=== PATIENT | female | born 1970 | race Caucasian/White ===

== ENCOUNTER 2023-03-05 14:33 | Inpatient (IN) ==
--- NOTE | 2023-03-05 14:40 | ED Triage Note ---
Date of Service March 05, 2023 History of Present Illness This patient was briefly evaluated while in triage. An abbreviated physical exam was performed. This patient is a 52-year-old Female who presents to the ED for evaluation fever and chills x 1 hour was shivering and could not get warm took temperature fever was 100.5 about 1 hour ago, then 102, took no medications ANDRES, cough x 2 days no N/V/D, urinary symptoms treatment for breast cancer - most recent chem was 3 weeks ago PICC left upper chest-had a dressing change had labs done today at [facility] Physical Exam GENERAL: NAD CARDIOVASCULAR: RRR RESPIRATORY: CTA ABDOMEN: BS x 4. Nontender to palpation. SKIN: healthy PICC line left upper chest Initial orders for labs and / or imaging were placed and patient was placed in the waiting area until a bed is available. Please see further documentation for the full ED course.
--- NOTE | 2023-03-05 15:29 | XRay Report ---
XR chest 1V not portable CLINICAL HISTORY: Sepsis. COMPARISON STUDY: PET/CT September 25, 2022 and chest radiograph February 07, 2022. FINDINGS: Left-sided Lnspkv-[id number]-Yoig is in place. Lung volumes are normal. Lungs are clear. There is no pneumothorax or pleural effusion. Cardiac size is normal. Mediastinal contours are normal. There is no evidence for pulmonary edema. IMPRESSION: No acute cardiopulmonary findings. ACT 112: Negative or not required by law. Electronically signed by: Jonathon Cristina M.D. 03/05/2023 3:28 PM
[2023-03-05 17:46] LABS: Basophils # (auto) 0.01 K/uL (0-0.2); Basophils % (auto) 0.6 %; Eosinophils # (auto) 0.01 K/uL (0-0.50); Eosinophils % (auto) 0.6 %; Hematocrit (blood only) 35.2 % (37.0-47.0); Hemoglobin 12.1 g/dl (12.0-16.0); Immature Granulocytes # (auto) 0.01 K/uL (0.01-0.20); Immature Granulocytes % (auto) 0.6 %; Lymphocytes # (auto) 0.22 K/uL (1.2-3.4); Lymphocytes % (auto) 12.9 %; Mean Corpuscular Hemoglobin 29.7 pg (25.0-34.0); Mean Corpuscular Hgb Conc 34.4 g/dL (32.0-36.0); Mean Corpuscular Volume 86.5 fL (80.0-100.0); Monocytes # (auto) 0.36 K/uL (0.11-0.59); Monocytes % (auto) 21.2 %; Neutrophils # (auto) 1.09 K/uL (1.40-6.50); Neutrophils % (auto) 64.1 %; Platelet Count 166 K/uL (130-400); RDW Coefficient of Variation 13.3 % (11.5-14.5); RDW Standard Deviation 41.1 fL (36.4-46.3); Red Blood Count 4.07 M/uL (4.20-5.40)
[2023-03-05] MEDS ORDERED: ACETAMINOPHEN 1,000 MG/100 ML VIAL IV STA (17:53)
[2023-03-05 18:04] LABS: Albumin Level 4.2 gm/dl (3.4-5.0); BUN Creatinine Ratio 20.7 (10-20); Bilirubin Direct 0.1 mg/dl (0-0.2); Bilirubin,Total 0.5 mg/dl (0.2-1.0); Calcium 9.6 mg/dl (8.6-10.3); Creatinine Clr Calc Pharmacy 69.8 ml/min; Est GFR (African American) 94.7 ml/min; Est GFR (Non-African American) 81.7 ml/min; Magnesium 1.8 mg/dl (1.7-2.4); Potassium 3.7 mmol/L (3.5-5.1); Total Protein 6.8 gm/dl (6.0-8.3)
--- NOTE | 2023-03-05 18:09 | Emergency Department Note ---
Impression & Plan Neutropenic fever, Elevated procalcitonin ED Provider Note HISTORY OF PRESENT ILLNESS: Patient is a 52-year-old female presenting with fever and general malaise. Patient is currently receiving chemotherapy for breast cancer. She reports her last dose of chemo was almost 3 weeks ago. She states that today she was feeling chilled while at work and having some rigors. She went out to her car where it was warm and she was feeling better, but when she went back into the building she was again feeling very unwell. She took her temperature at home and noted to be febrile from 100.5-102. She called her oncologist who referred her to the emergency department. States that she had a nonproductive minor cough over the weekend. Denies any recent sick contact exposures. Denies any chest pain. Denies any nausea, vomiting or diarrhea. Denies any dysuria or hematuria ROS: as above PHYSICAL EXAM: Constitutional: Patient appears in no acute distress. HENT: Head: Normocephalic and atraumatic. Eyes: EOMI, PERRL Mouth/Throat: Mucous membranes moist. Neck: Trachea midline. Neck supple. Cardiovascular: RRR, No murmurs, rubs or gallops. Intact distal pulses. Pulmonary/Chest: No respiratory distress. Breath sounds clear and equal bilaterally. No wheezes or rales. Abdominal: Abdomen soft, no tenderness, rebound or guarding. Musculoskeletal: No edema, tenderness or deformity noted. Skin: Warm and dry. No rash, erythema, pallor or cyanosis Psychiatric: Appropriate mood and affect for situation. Neurological: Alert and keenly responsive. CN II-XII grossly intact, moving all extremities equally and fully. MDM: - Vitals signs showed tachycardia. - History obtained via patient. Patient presents with fever and general malaise. Patient reports that today she was feeling chilled at work and noted that she had a fever when she got home. She is currently receiving chemotherapy for a history of breast cancer. He is last dose of chemo was almost 3 weeks ago. Denies any chest pain, nausea or vomiting. Denies any abdominal pain. - Chronic conditions affecting care: breast cancer - Differential diagnoses include, but are not limited to: UTI; pneumonia; bacteremia; viral syndrome - Order placed for continuous cardiac monitoring. At this time, monitor showed rate of 95 bpm with normal sinus rhythm, per my interpretation. - External medical records reviewed. - EKG reviewed by myself showed normal sinus rhythm. Rate 98 bpm. QTc 681. No acute ischemic changes. - Laboratory workup interpreted by myself showed leukopenia (WBC 1.7); neutropenia (neutrophils 1.09); normal lactate; normal electrolytes; elevated liver function tests (AST 54; ALT 61); normal troponin; elevated procalcitonin (4.9) - CXR negative for pneumonia, per my interpretation. - UA negative for infection - [employer] upper respiratory panel negative - Blood cultures obtained. - US RUQ ordered to assess for possible cholecystitis as source. - Patient did develop a fever in ER. Given 1g IV acetaminophen. - Patient given IV cefepime for antibiotic coverage. - Discussion was had with director social about patient's case and need for admission. - Hospitalist, Dr. Morin, consulted for admission - Patient admitted to [facility] service for further evaluation and management. ASSESSMENT AND PLAN: Diagnosis: neutropenic fever; elevated procalcitonin Plan: admit Past Med/Surg History Medical History (Updated 03/05/23 @ 19:50 by Sara Kohli MD) Kidney stone Melanoma in situ Surgical History (Updated 12/05/21 @ 08:26 by Sierra Dsouza RN) History of removal of skin mole S/P lumpectomy, right breast Family History (Updated 08/13/19 @ 09:13 by MOISÉS Sharp) Aunt Breast cancer maternal Grandmother (Maternal) Heart disease Myocardial infarction Uncle Heart disease Sister Melanoma Denies family history of Ovarian cancer Prostate cancer Colorectal cancer Social History (Updated 12/05/21 @ 08:29 by Sierra Dsouza RN) Smoking Status: Never smoker Hx Alcohol Use: No Hx Substance Use: No Preferred Language: Italian Communication Ability: Effective Visual Impairment: No Limitations Hearing Ability: Normal 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 Lunch Manager Required: No Beliefs That Will Affect Care: None marital status: Current Living Situation: Spouse and Family current occupational status: employed Feels Safe at Home: Yes Diet Comment: Plant based whole food since October, previous vegetarian caffeine: No during the past year weight has: remained stable Physical Activity Frequency: 3-4 Times per Week Assistive Devices: None Allergies Allergies Allergy/AdvReac Type Severity Reaction Status Date / Time adhesive AdvReac Mild Rash Verified 03/05/23 16:55 Home Meds Home Medications Medication Instructions Recorded Confirmed krill 1,000 mg-omega-3 170 mg-dha 1 cap PO QAM 06/28/19 03/05/23 50 mg-epa 80 mm-gpumzj-fzttb capsule (krill oil) Coriolus Versicolor SAP mushrooms 500 mg PO DAILY 11/20/22 03/05/23 MagPure Glycinate 270 mg PO DAILY 11/20/22 03/05/23 Reacted Calcium with Phosphorous 250 mg PO DAILY 11/20/22 03/05/23 TetrahydroCurcumin SR 2 cap PO QAM 11/20/22 03/05/23 Ultraflora Spectrum Probiotic 1 cap PO QAM 11/20/22 03/05/23 acetaminophen 500 mg tablet 1,000 mg PO Q8H PRN Pain 11/20/22 03/05/23 (Tylenol Extra Strength) cholecalciferol (vitamin D3) 50 4,000 unit PO QAM 11/20/22 03/05/23 mcg (2,000 unit) tablet (Vitamin D3) ibuprofen 400 mg tablet 400 mg PO Q8H 11/20/22 03/05/23 pectin agh-mpdl-A-bioflav-soy 3 tab PO DAILY 11/20/22 03/05/23 tablet sertraline 50 mg tablet 50 mg PO QAM 11/20/22 03/05/23 vitamin C Lipsomal 1,600 mg PO DAILY 11/20/22 03/05/23 vitamin K2 100 mcg capsule 100 mcg PO DAILY 11/20/22 03/05/23 Results & Data (ED) Vital Signs Vital Signs - 24 hr 03/05/23 14:33 03/05/23 17:28 03/05/23 17:29 Temperature 37.4 C Temperature Source Oral Pulse Rate 109 H Pulse Rate [Apical] 97 H Pulse Rhythm [Apical] Pulse Strength [Apical] Respiratory Rate 18 18 Respiratory Effort / Characteristics Non-Labored Respiratory Depth Normal Respiratory Pattern Regular Blood Pressure 116/65 Blood Pressure [Left Arm] 139/79 Blood Pressure Mean 82 Blood Pressure Mean [Left Arm] 99 Pulse Oximetry 98 99 98 Oxygen Delivery Method Room Air Room Air Sepsis Recent Fever Within 48 Hours Yes Sepsis New/Unexplained Change in Mental Status N/A Sepsis Action Taken by Nursing No Action Required 03/05/23 17:31 03/05/23 17:41 03/05/23 18:04 Temperature 37.9 C H Temperature Source Oral Pulse Rate 91 H Pulse Rate [Apical] 95 H Pulse Rhythm [Apical] Regular Pulse Strength [Apical] Normal Respiratory Rate 18 Respiratory Effort / Characteristics Non-Labored Respiratory Depth Normal Respiratory Pattern Regular Blood Pressure Blood Pressure [Left Arm] 133/76 Blood Pressure Mean Blood Pressure Mean [Left Arm] 95 Pulse Oximetry 98 Oxygen Delivery Method Room Air Sepsis Recent Fever Within 48 Hours Sepsis New/Unexplained Change in Mental Status Sepsis Action Taken by Nursing 03/05/23 19:22 Temperature 37.0 C Temperature Source Oral Pulse Rate Pulse Rate [Apical] Pulse Rhythm [Apical] Pulse Strength [Apical] Respiratory Rate Respiratory Effort / Characteristics Respiratory Depth Respiratory Pattern Blood Pressure Blood Pressure [Left Arm] Blood Pressure Mean Blood Pressure Mean [Left Arm] Pulse Oximetry Oxygen Delivery Method Sepsis Recent Fever Within 48 Hours Sepsis New/Unexplained Change in Mental Status Sepsis Action Taken by Nursing Laboratory Data 03/05/23 17:20 03/05/23 17:20 Lab Results 03/05/23 03/05/23 03/05/23 Range/Units 17:20 17:20 17:20 WBC 1.70 L (4.8-10.8) K/ul RBC 4.07 L (4.20-5.40) M/uL Hgb 12.1 (12.0-16.0) g/dl Hct 35.2 L (37.0-47.0) % MCV 86.5 (80.0-100.0) fL MCH 29.7 (25.0-34.0) pg MCHC 34.4 (32.0-36.0) g/dL RDW Std Deviation 41.1 (36.4-46.3) fL RDW Coeff of Julian 13.3 (11.5-14.5) % Plt Count 166 (130-400) K/uL MPV 9.0 L (9.4-12.4) fL Immature Gran % (Auto) 0.6 % Neut % (Auto) 64.1 % Lymph % (Auto) 12.9 % [place] % (Auto) 21.2 % Eos % (Auto) 0.6 % Baso % (Auto) 0.6 % Neut # (Auto) 1.09 L (1.40-6.50) K/uL Lymph # (Auto) 0.22 L (1.2-3.4) K/uL [place] # (Auto) 0.36 (0.11-0.59) K/uL Eos # (Auto) 0.01 (0-0.50) K/uL Baso # (Auto) 0.01 (0-0.2) K/uL Immature Gran # (Auto) 0.01 (0.01-0.20) K/uL Sodium 138 (136-145) mmol/L Potassium 3.7 (3.5-5.1) mmol/L Chloride 107 (98-107) mmol/L Carbon Dioxide 24 (21-32) mmol/L Anion Gap 7 (3-11) BUN 17 (6-23) mg/dl Creatinine 0.82 (0.6-1.2) mg/dl Est Cr Clr Drug Dosing 69.8 ml/min Est GFR ( Amer) 94.7 ml/min Est GFR (Non-Af Amer) 81.7 ml/min BUN/Creatinine Ratio 20.7 H (10-20) Glucose 131 H (70-99(Fasting)) mg/dl Lactate (0.4-2.0) mmol/L Calcium 9.6 (8.6-10.3) mg/dl Magnesium 1.8 (1.7-2.4) mg/dl Total Bilirubin 0.5 (0.2-1.0) mg/dl Direct Bilirubin 0.1 (0-0.2) mg/dl AST 54 H (13-39) U/L ALT 61 H (7-52) U/L Alkaline Phosphatase 114 H (34-104) U/L Troponin I High Sens 2.8 (0-14) pg/ml Total Protein 6.8 (6.0-8.3) gm/dl Albumin 4.2 (3.4-5.0) gm/dl Procalcitonin 4.90 H (0-0.5) ng/ml Urine Color Urine Appearance (Clear) Urine pH (4.5-7.5) Ur Specific [place] (1.000-1.030) Urine Protein (Negative) Urine Glucose (UA) (Negative) Urine Ketones (Negative) Urine Blood (Negative) Urine Nitrite (Negative) Urine Bilirubin (Negative) Urine Urobilinogen (Negative) Ur Leukocyte Esterase (Negative) Adenovirus (PCR) (NotDetected) B. pertussis DNA (PCR) (NotDetected) B.parapertussis DNA PCR (NotDetected) C. pneumoniae DNA (PCR) (NotDetected) Coronavirus OC43 (PCR) (NotDetected) Coronavirus HKU1 (PCR) (NotDetected) Coronavirus 229E (PCR) (NotDetected) SARS-CoV-2 (PCR) (NotDetected) Coronavirus NL63 (PCR) (NotDetected) Human Metapneumovir PCR (NotDetected) Influenza Type A (PCR) (NotDetected) Influenza Type B (PCR) (NotDetected) M. pneumoniae (PCR) (NotDetected) Parainfluenza 1 (PCR) (NotDetected) Parainfluenza 2 (PCR) (NotDetected) Parainfluenza 3 (PCR) (NotDetected) Parainfluenza 4 (PCR) (NotDetected) RSV (PCR) (NotDetected) Entero/Rhino (PCR) (NotDetected) 03/05/23 03/05/23 03/05/23 Range/Units 17:26 18:07 18:36 WBC (4.8-10.8) K/ul RBC (4.20-5.40) M/uL Hgb (12.0-16.0) g/dl Hct (37.0-47.0) % MCV (80.0-100.0) fL MCH (25.0-34.0) pg MCHC (32.0-36.0) g/dL RDW Std Deviation (36.4-46.3) fL RDW Coeff of Julian (11.5-14.5) % Plt Count (130-400) K/uL MPV (9.4-12.4) fL Immature Gran % (Auto) % Neut % (Auto) % Lymph % (Auto) % [place] % (Auto) % Eos % (Auto) % Baso % (Auto) % Neut # (Auto) (1.40-6.50) K/uL Lymph # (Auto) (1.2-3.4) K/uL [place] # (Auto) (0.11-0.59) K/uL Eos # (Auto) (0-0.50) K/uL Baso # (Auto) (0-0.2) K/uL Immature Gran # (Auto) (0.01-0.20) K/uL Sodium (136-145) mmol/L Potassium (3.5-5.1) mmol/L Chloride (98-107) mmol/L Carbon Dioxide (21-32) mmol/L Anion Gap (3-11) BUN (6-23) mg/dl Creatinine (0.6-1.2) mg/dl Est Cr Clr Drug Dosing ml/min Est GFR ( Amer) ml/min Est GFR (Non-Af Amer) ml/min BUN/Creatinine Ratio (10-20) Glucose (70-99(Fasting)) mg/dl Lactate 1.9 (0.4-2.0) mmol/L Calcium (8.6-10.3) mg/dl Magnesium (1.7-2.4) mg/dl Total Bilirubin (0.2-1.0) mg/dl Direct Bilirubin (0-0.2) mg/dl AST (13-39) U/L ALT (7-52) U/L Alkaline Phosphatase (34-104) U/L Troponin I High Sens (0-14) pg/ml Total Protein (6.0-8.3) gm/dl Albumin (3.4-5.0) gm/dl Procalcitonin (0-0.5) ng/ml Urine Color Yellow Urine Appearance Clear (Clear) Urine pH 7.0 (4.5-7.5) Ur Specific [place] 1.004 (1.000-1.030) Urine Protein Negative (Negative) Urine Glucose (UA) Negative (Negative) Urine Ketones Negative (Negative) Urine Blood Negative (Negative) Urine Nitrite Negative (Negative) Urine Bilirubin Negative (Negative) Urine Urobilinogen Negative (Negative) Ur Leukocyte Esterase Negative (Negative) Adenovirus (PCR) Not Detected (NotDetected) B. pertussis DNA (PCR) Not Detected (NotDetected) B.parapertussis DNA PCR Not Detected (NotDetected) C. pneumoniae DNA (PCR) Not Detected (NotDetected) Coronavirus OC43 (PCR) Not Detected (NotDetected) Coronavirus HKU1 (PCR) Not Detected (NotDetected) Coronavirus 229E (PCR) Not Detected (NotDetected) SARS-CoV-2 (PCR) Not Detected (NotDetected) Coronavirus NL63 (PCR) Not Detected (NotDetected) Human Metapneumovir PCR Not Detected (NotDetected) Influenza Type A (PCR) Not Detected (NotDetected) Influenza Type B (PCR) Not Detected (NotDetected) M. pneumoniae (PCR) Not Detected (NotDetected) Parainfluenza 1 (PCR) Not Detected (NotDetected) Parainfluenza 2 (PCR) Not Detected (NotDetected) Parainfluenza 3 (PCR) Not Detected (NotDetected) Parainfluenza 4 (PCR) Not Detected (NotDetected) RSV (PCR) Not Detected (NotDetected) Entero/Rhino (PCR) Not Detected (NotDetected) Administered Medications Discontinued Medications Acetaminophen (Ofirmev) 1,000 mg in 100 mls @ 400 mls/hr IV NOW STA Stop: 03/05/23 18:07 Last Infusion: 03/05/23 19:22 Dose: 0 mls/hr Documented By: Admin: 03/05/23 18:05 Dose: 400 mls/hr Documented By: FARRAH Cefepime HCl (Maxipime) 2,000 mg in 20 mls @ 5 mls/min IV NOW STA; Protocol Stop: 03/05/23 18:38 Last Admin: 03/05/23 18:44 Dose: 5 mls/min Documented By: FARRAH Imaging Data Radiologist's Impression: Chest X-Ray 03/05/23 14:43 XR chest 1V not portable CLINICAL HISTORY: Sepsis. COMPARISON STUDY: PET/CT September 25, 2022 and chest radiograph February 07, 2022. FINDINGS: Left-sided Ucnxpd-v-Vmjb is in place. Lung volumes are normal. Lungs are clear. There is no pneumothorax or pleural effusion. Cardiac size is normal. Mediastinal contours are normal. There is no evidence for pulmonary edema. IMPRESSION: No acute cardiopulmonary findings. ACT 112: Negative or not required by law. Electronically signed by: Jonathon Cristina M.D. 03/05/2023 3:28 PM Discharge Plan Visit Data Chief Complaint: Fever Stated Complaint: CANCER PT, FEVER,HEADACHE,DIZZINESS ED Provider: Sara Kohli Discharge Problem: Neutropenic fever, Elevated procalcitonin Forms Stand Alone Forms: My [facility] Prescriptions Prescriptions: No Action vitamin K2 100 mcg capsule 100 mcg PO DAILY vitamin C Lipsomal 1,600 mg PO DAILY Coriolus Versicolor SAP mushrooms 500 mg PO DAILY sertraline 50 mg tablet 50 mg PO QAM pectin jns-wcoa-U-bioflav-soy Tablet 3 tab PO DAILY TetrahydroCurcumin SR 2 cap PO QAM Ultraflora Spectrum Probiotic 1 cap PO QAM Reacted Calcium with Phosphorous 250 mg PO DAILY MagPure Glycinate 270 mg PO DAILY acetaminophen [Tylenol Extra Strength] 500 mg tablet 1,000 mg PO Q8H PRN (Reason: Pain) ibuprofen 400 mg tablet 400 mg PO Q8H krill oil [id number] mg Capsule 1 cap PO QAM cholecalciferol (vitamin D3) [Vitamin D3] 50 mcg (2,000 unit) tablet 4,000 unit PO QAM Referrals Referrals: Clary Mari PA-C [Primary Care Provider] -
[2023-03-05 18:10] LABS: Troponin I High Sensitivity 2.8 pg/ml (0-14)
[2023-03-05 18:24] LABS: Appearance Urine Clear (Clear); Bilirubin Urine Negative (Negative); Blood Urine Negative (Negative); Color Urine Yellow; Glucose Urine UA Negative (Negative); Ketones Urine Negative (Negative); Leukocyte Esterase Urine Negative (Negative); Nitrite Urine Negative (Negative); Protein Urine Negative (Negative); Specific Gravity Urine 1.004 (1.000-1.030); Urobilinogen Urine Negative (Negative)
[2023-03-05 18:31] LABS: Adenovirus PCR Not Detected (NotDetected); Bordetella parapertussis PCR Not Detected (NotDetected); Bordetella pertussis PCR Not Detected (NotDetected); Chlamydia pneumoniae PCR Not Detected (NotDetected); Coronavirus 229E PCR Not Detected (NotDetected); Coronavirus CoV-2 (COVID19)PCR Not Detected (NotDetected); Coronavirus HKU1 PCR Not Detected (NotDetected); Coronavirus NL63 PCR Not Detected (NotDetected); Coronavirus OC43PCR Not Detected (NotDetected); Human Metapneumovirus PCR Not Detected (NotDetected); Influenza A PCR Not Detected (NotDetected); Influenza B PCR Not Detected (NotDetected); Mycoplasma pneumoniae PCR Not Detected (NotDetected); Parainfluenza Virus 1 PCR Not Detected (NotDetected); Parainfluenza Virus 2 PCR Not Detected (NotDetected); Parainfluenza Virus 3 PCR Not Detected (NotDetected); Parainfluenza Virus 4 PCR Not Detected (NotDetected); Respiratory Syncytial VirusPCR Not Detected (NotDetected); Rhinovirus/Enterovirus PCR Not Detected (NotDetected)
[2023-03-05] MEDS ORDERED: CEFEPIME 2,000 MG/20 ML VIAL IV STA (18:35)
[2023-03-05] MEDS ORDERED: NSS + 20MEQ KCL 20 MEQ/1,000 ML BAG IV ONE (20:15)
--- NOTE | 2023-03-05 20:18 | Ultrasound Report ---
Exam(s): US LIVER EXAM: US Abdomen Limited, Right Upper Quadrant CLINICAL HISTORY: Reason for exam: fever; transaminitis. TECHNIQUE: Real-time ultrasound of the right upper quadrant with image documentation. COMPARISON: PET scan on 09/25/2022 FINDINGS: Liver: Unremarkable. No mass. No intrahepatic bile duct dilation. Gallbladder: No gallstones or sludge. No gallbladder wall thickening or pericholecystic fluid. Negative sonographic Dorman's sign. Common bile duct: Unremarkable as visualized. No stones. No dilation. Normal common bile duct measuring 5.1 mm. Pancreas: Visualized portions of the pancreas are grossly unremarkable. Right kidney: Right kidney measures 9.5 cm in length. No hydronephrosis or stone. Inferior vena cava: Visualized portions of the IVC are grossly unremarkable. Free fluid: No ascites. IMPRESSION: No acute findings in the right upper quadrant. Electronically signed by: Nehal Nolasco M.D. 03/05/23 20:17 PM
--- NOTE | 2023-03-05 20:22 | History & Physical Report ---
Date of Service March 05, 2023 Assessment & Plan (1) Neutropenic fever: (2) Malignant neoplasm of upper-outer quadrant of right breast in female, estrogen receptor positive: Plan Ms. Whaley is a 52-year-old female with breast cancer s/p R mastectomy currently under [facility] chemo treatment that presented to the ED today with fever and chills that started at 1130 this morning. Recent infection at insertion site of port catheter; wound culture done on 01/18 and on 01/20 wound culture positive for pseudomonas aeruginosa; treated with THREE antibiotics; Cipro, Bactrim and she can not recall the third. Port tip culture sent and negative on 02/12. F alvinos with Dr. Mckayla Dillon at [facility]; completed 2/8 rounds of chemo; next round scheduled for Thursday 03/08. Radiation scheduled after completion of chemo which is planned for June. Neutropenic 1.70; no pancytopenia. Transaminitis AST 54, ALT 61, alk phos 114; procalcitonin 4.90. Liver US negative. Chest x-ray negative for acute cardiopulmonary disease. Current power port insertion directly next to recent insertion wound infection; trend labs including LFT's, await blood cultures and cover with Daptomycin for broad spectrum coverage including MRSA coverage. Would consider anti-pseudomonal coverage. Consider power port removal with tip culture if no improvement. Neutropenic fever: WBC 1.70 Transaminitis AST 54, ALT 61, alk phos 114 No abdominal pain; obtain liver ultrasound UA and BioFire negative Blood and sputum cultures ordered Recent infection at insertion site of port catheter; wound culture done on 01/18 and on 01/20 wound culture positive for pseudomonas aeruginosa; treated with THREE antibiotics; Cipro, Bactrim and she can not recall the third. Port was removed on 02/12 and tip culture sent and negative. Cefepime started in ED; will continue with Dapto and adjust based on culture results; Would consider antipseudomonal coverage Current power port insertion directly next to recent insertion wound infection; trend labs including LFT's. If no improvement, consider power port removal with tip culture if no improvement. Malignant neoplasm of right breast: Follows with Dr. Mckayla Dillon at [facility] where she receives her chemo; she has completed 2/8 rounds of chemo; next round scheduled for Thursday 03/08. Takes CMF chemotherapy. Follows with Dr. Rene with [facility] surgical oncology recurrent ER+, HI positive, H ER 2 negative recurrent right breast invasive ductal carcinoma status post right mastectomy with reconstruction 10/30/2022 with 2/2 positive nodes and ALND Radiation scheduled after completion of chemo which is planned for June 2023 Last PET scan 09/27 negative for metastasis. Disposition: PCP: Dr. Stiles CODE STATUS: Full code VTE prophylaxis: per admitting attending I spent a total of 88 minutes coordinating, documenting, and providing care for this patient excluding time spent in the performance of separately billed services. All of the aforementioned completed while collaborating with the assigned attending physician for a full treatment plan. Please see their addendum for further details. History of Present Illness Chief Complaint: fever/chills Primary Care Provider: Clary Mari PA-C Ms. Whaley is a 52-year-old female that presented to the ED today with fever and chills that started at 1130 this morning. She was working out by weight lifting and started to have feverish symptoms with chills. She had her tunneled catheter dressing changed this morning as well. Afterwards, she went to work and got off of the phone after a stressful call and she started to have fever and chills. First temp 101, second temp 102. She called her oncologist at [facility] who advised her to go to the ED. Advised she has a slight nonproductive cough. Recently babysat her 5 year old great niece who was diagnosed with HFMD today. Recent infection at insertion site of port catheter; wound culture done on 01/18 and on 01/20 wound culture positive for pseudomonas aeruginosa; treated with THREE antibiotics; Cipro, Bactrim and she can not recall the third. Port was removed on 02/12 and tip culture sent and negative. Is diligent with weekly dressing changes and saline flushing of her current power port. Follows with Dr. Mckayla Dillon at [facility] where she receives her chemo; she has completed 2/8 rounds of chemo; next round scheduled for Thursday 03/08. Takes CMF chemotherapy. Radiation scheduled after completion of chemo which is planned forJune. Also follows with Dr. Rene with [facility] surgical oncology and Dr. Leggett with radiation oncology for recurrent ER+, HI positive, H ER 2 negative recurrent right breast invasive ductal carcinoma status post right mastectomy with reconstruction 10/30/2022 with 2/2 positive nodes and ALND. Pathology results 11/25/2022 negative for malignancy. Neutropenic 1.70; no pancytopenia. Transaminitis AST 54, ALT 61, alk phos 114; procalcitonin 4.90. Liver US negative. Chest x-ray negative for acute cardiopulmonary disease. Denies dizziness, shortness of breath, chest pain, palpitations, abdominal pain, nausea, vomiting, diarrhea, hematochezia, dysuria, polyuria, hematuria, no oral ulcers, pruritis, recent falls or trauma. Pt AAO4 and a good historian. Meets sepsis criteria with tachycardia, neutropenia, and fevers. Current power port insertion directly next to recent insertion wound infection; suggest trending labs including LFT's, await blood cultures and cover with Daptomycin for broad spectrum coverage including MRSA coverage. Would consider antipseudomonal coverage, especially given recent infection. IV fluids for resuscitation. Consider power port removal with tip culture if no improvement. Patient will be admitted for further evaluation and management. Please see A/P for further details. Allergies Allergy/AdvReac Type Severity Reaction Status Date / Time adhesive AdvReac Mild Rash Verified 03/05/23 16:55 Home Medications Medication Instructions Recorded Confirmed Type krill 1,000 mg-omega-3 170 mg-dha 1 cap PO QAM 06/28/19 03/05/23 History 50 mg-epa 80 [id number] capsule (krill oil) Coriolus Versicolor SAP mushrooms 500 mg PO DAILY 11/20/22 03/05/23 History MagPure Glycinate 270 mg PO DAILY 11/20/22 03/05/23 History Reacted Calcium with Phosphorous 250 mg PO DAILY 11/20/22 03/05/23 History TetrahydroCurcumin SR 2 cap PO QAM 11/20/22 03/05/23 History Ultraflora Spectrum Probiotic 1 cap PO QAM 11/20/22 03/05/23 History acetaminophen 500 mg tablet 1,000 mg PO Q8H PRN Pain 11/20/22 03/05/23 History (Tylenol Extra Strength) cholecalciferol (vitamin D3) 50 4,000 unit PO QAM 11/20/22 03/05/23 History mcg (2,000 unit) tablet (Vitamin D3) ibuprofen 400 mg tablet 400 mg PO Q8H 11/20/22 03/05/23 History sertraline 50 mg tablet 50 mg PO QAM 11/20/22 03/05/23 History vitamin C Lipsomal 1,600 mg PO DAILY 11/20/22 03/05/23 History vitamin K2 100 mcg capsule 100 mcg PO DAILY 11/20/22 03/05/23 History Past Med/Surg History Medical History Kidney stone Melanoma in situ Surgical History History of removal of skin mole S/P lumpectomy, right breast Family History Aunt Breast cancer maternal Grandmother (Maternal) Heart disease Myocardial infarction Uncle Heart disease Sister Melanoma Denies family history of Ovarian cancer Prostate cancer Colorectal cancer Social History Smoking Status: Former smoker Hx Alcohol Use: No Hx Substance Use: No Preferred Language: Lao Communication Ability: Effective Visual Impairment: No Limitations Hearing Ability: Normal Biomedical Engineer Required: No Beliefs That Will Affect Care: None marital status: Current Living Situation: Spouse and Family current occupational status: employed Other Information That Helps Us Care for You: No Feels Safe at Home: Yes Safety Concerns: Feels Safe At This Time Diet Comment: Plant based whole food since October, previous vegetarian caffeine: No during the past year weight has: remained stable Physical Activity Frequency: 3-4 Times per Week Assistive Devices: None Review of Systems Review of Systems: Neuro: (-) Falls, trauma, slurred speech HEENT: (-) ANDRES, dizziness, dysphagia, visual or auditory changes CV: (-) CP, palpitations, swelling Resp: (-) SOB GI: (-) appetite changes, N/V/D, bowel changes : (-) urinary changes Skin: (-) rashes Psych: (-) anxiety, depression Physical Exam Physical Exam: Neuro: AAOx4, PERRLA, no aphagia, memory changes, CNII-XII grossly intact HEENT: head normocephalic, moist mucus membranes CV: S1/S2, (-) M/G/R, (-) edema, cap refill < 3 seconds Resp: Lungs CTA in all strong. On RA GI: Abdomen S/NT/ND, Ax4 bowel sounds, (-) CVA tenderness Musculoskeletal: 5/5 B/L UE strength, 5/5 B/L LE strength. No gait disturbance Skin: (-) rashes , (-) erythema. Psych: euthymic mood Results & Data Results & Data Vital Signs (Past 12 Hours) Vital Signs Temp Pulse Pulse Resp BP BP Pulse Ox 03/05/23 19:22 37.0 C 03/05/23 18:04 95 H 18 133/76 98 03/05/23 17:41 91 H 03/05/23 17:31 37.9 C H 03/05/23 17:29 97 H 18 139/79 98 03/05/23 17:28 99 03/05/23 14:33 37.4 C 109 H 18 116/65 98 O2 Del Method 03/05/23 19:22 03/05/23 18:04 Room Air 03/05/23 17:41 03/05/23 17:31 03/05/23 17:29 03/05/23 17:28 Room Air 03/05/23 14:33 Room Air Laboratory Results Short CBC 03/05/23 Range/Units 17:20 WBC 1.70 L (4.8-10.8) K/ul Hgb 12.1 (12.0-16.0) g/dl Hct 35.2 L (37.0-47.0) % Plt Count 166 (130-400) K/uL BMP 03/05/23 17:20 Sodium 138 Potassium 3.7 Chloride 107 Carbon Dioxide 24 BUN 17 Creatinine 0.82 Glucose 131 H Calcium 9.6 Liver Function 03/05/23 Range/Units 17:20 Total Bilirubin 0.5 (0.2-1.0) mg/dl Direct Bilirubin 0.1 (0-0.2) mg/dl AST 54 H (13-39) U/L ALT 61 H (7-52) U/L Alkaline Phosphatase 114 H (34-104) U/L Albumin 4.2 (3.4-5.0) gm/dl Urine 03/05/23 Range/Units 18:07 Urine Color Yellow Urine Appearance Clear (Clear) Urine pH 7.0 (4.5-7.5) Ur Specific [place] 1.004 (1.000-1.030) Urine Protein Negative (Negative) Urine Glucose (UA) Negative (Negative) Diagnostic Findings Chest X-Ray 03/05/23 14:43 XR chest 1V not portable CLINICAL HISTORY: Sepsis. COMPARISON STUDY: PET/CT September 25, 2022 and chest radiograph February 07, 2022. FINDINGS: Left-sided [place]cg[place] is in place. Lung volumes are normal. Lungs are clear. There is no pneumothorax or pleural effusion. Cardiac size is normal. Mediastinal contours are normal. There is no evidence for pulmonary edema. IMPRESSION: No acute cardiopulmonary findings. ACT 112: Negative or not required by law. Electronically signed by: Jonathon Cristina M.D. 03/05/2023 3:28 PM Code Status & VTE Plan Code Status Full code in the event of cardiac or respiratory arrest Supervising Physician Co-Signing Physician Notes IM ATTENDING : Patient seen and examined. History obtained from patient, family, and records. Preceding documentation by MOISÉS Villa reviewed. FINAL ASSESSMENT AND PLAN as follows : Sepsis/neutropenic fever Immunocompromised patient hx recurrent right breast cancer status post surgery ongoing adjuvant chemotherapy No obvious source for now. Hx Mediport infection (Achromobacter and Pseudomonas) status post Ciprofloxacin course last month Subsequently Mediport removal and replacement with with chest tunneled CVC Abnormal LFTs, possibly from chemotherapy medications/natural supplements Hyperglycemia rule out DM Medical telemetry CS, Daptomycin, Cefepime Follow LFTs GI consult if with progression Patient requested to review components of home natural supplements. Check hemoglobin A1c DVT prophylaxis with Lovenox subcu Full code Text document was generated using [employer] voice recognition software. It may contain grammatical or spelling errors. Kindly contact undersigned for clarification of any documentation item in question.
[2023-03-05 21:07] LABS: Estimated Average Glucose 108 mg/dl; Hemoglobin A1C 5.4 % (4.5-5.6)
[2023-03-05] MEDS ORDERED: MAGNESIUM SULFATE / D5W 1 GM/100 ML BAG IV ONE (21:50)
[2023-03-05] MEDS ORDERED: LORazepam 0.5 MG TAB PO PRN (22:15)
[2023-03-05] MEDS ORDERED: KETOROLAC TROMETHAMINE 15 MG/ML VIAL IV PRN (22:15)
[2023-03-05] MEDS ORDERED: PROMETHAZINE HCL 12.5 MG in SODIUM CHLORIDE 0.9% 50 ML IV PRN (22:15)
[2023-03-05] MEDS ORDERED: IBUPROFEN 200 MG TAB PO PRN (22:15)
[2023-03-05] MEDS: DAPTOmycin 350 MG in SYRINGE 0 ML IV SCH (23:45)
[2023-03-06] MEDS: ACETAMINOPHEN 500 MG TAB PO PRN (03:00)
[2023-03-06] MEDS ORDERED: NSS + 20MEQ KCL 20 MEQ/1,000 ML BAG IV ONE (03:00)
[2023-03-06 03:17] LABS: A calco-baum cmplx NotReported Not Detected (NotDetected); Bact fragilis Not Reported Not Detected (NotDetected); C auris Not Reported Not Detected (NotDetected); CTX-M Resistant Gene Not Detected (NotDetected); Calbicans Not Reported Not Detected (NotDetected); Candida glabrata Not Reported Not Detected (NotDetected); Candida krusei Not Reported Not Detected (NotDetected); Cneoformans/gatti Not Reported Not Detected (NotDetected); Cparapsilosis Not Reported Not Detected (NotDetected); Ctropicalis Not Reported Not Detected (NotDetected); E cloacae compx Not Reported Not Detected (NotDetected); Efaecalis Not Reported Not Detected (NotDetected); Efaecium Not Reported Not Detected (NotDetected); Enterobacterales Not Reported DETECTED (NotDetected); Escherichia coli Not Reported Not Detected (NotDetected); H influenzae Not Reported Not Detected (NotDetected); IMP Resistant Gene Not Detected (NotDetected); K aerogenes Not Reported Not Detected (NotDetected); KPC Resistant Gene Not Detected (NotDetected); Koxytoca Not Reported Not Detected (NotDetected); Kpneumoniae grp Not Reported Not Detected (NotDetected); Lmonocyt Not Reported Not Detected (NotDetected); N meningitidis Not Reported Not Detected (NotDetected); NDM Resistant Gene Not Detected (NotDetected); OXA 48 Like Resistant Gene Not Detected (NotDetected); P aeruginosa Not Reported Not Detected (NotDetected); Proteus spp Not Reported Not Detected (NotDetected); Salmonella spp Not Reported Not Detected (NotDetected); Smarcescens Not Reported Not Detected (NotDetected); Staph lugdunensis Not Reported Not Detected (NotDetected); Staph spp. Not Reported Not Detected (NotDetected); Staphaureus Not Reported Not Detected (NotDetected); Staphepi Not Reported Not Detected (NotDetected); Stenmaltophilia Not Reported Not Detected (NotDetected); Strep agal(GrpB) Not Reported Not Detected (NotDetected); Strep pneum Not Reported Not Detected (NotDetected); Strep pyog (GrpA) Not Reported Not Detected (NotDetected); Strep spp Not Reported Not Detected (NotDetected); VIM Resistant Gene Not Detected (NotDetected)
[2023-03-06 03:46] LABS: Enterobacterales DETECTED (NotDetected)
[2023-03-06] MEDS ORDERED: CEFEPIME 2,000 MG in SYRINGE 0 ML IV SCH (06:00)
[2023-03-06 07:10] LABS: Basophils # (auto) 0.01 K/uL (0-0.2); Basophils % (auto) 1.1 %; Hematocrit (blood only) 33.3 % (37.0-47.0); Hemoglobin 11.4 g/dl (12.0-16.0); Immature Granulocytes # (auto) 0.05 K/uL (0.01-0.20); Immature Granulocytes % (auto) 5.3 %; Lymphocytes # (auto) 0.17 K/uL (1.2-3.4); Lymphocytes % (auto) 18.1 %; Mean Corpuscular Hemoglobin 29.8 pg (25.0-34.0); Mean Corpuscular Hgb Conc 34.2 g/dL (32.0-36.0); Mean Corpuscular Volume 87.2 fL (80.0-100.0); Monocytes # (auto) 0.25 K/uL (0.11-0.59); Monocytes % (auto) 26.6 %; Neutrophils # (auto) 0.46 K/uL (1.40-6.50); Neutrophils % (auto) 48.9 %; Platelet Count 146 K/uL (130-400); RDW Coefficient of Variation 13.5 % (11.5-14.5); Red Blood Count 3.82 M/uL (4.20-5.40); White Blood Count 0.94 K/ul (4.8-10.8)
[2023-03-06] MEDS ORDERED: CHOLECALCIFEROL 1,000 UNITS 25 MCG TAB PO SCH (09:00)
[2023-03-06] MEDS: SERTRALINE HCL 50 MG TABLET PO SCH (09:14)
[2023-03-06] MEDS: ENOXAPARIN INJ 40 MG/0.4 ML SYR SQ SCH ×2 (09:14→09:19)
--- NOTE | 2023-03-06 10:34 | Hospitalist Progress Note ---
Date of Service March 06, 2023 Assessment & Plan (1) Neutropenic fever: (2) Malignant neoplasm of upper-outer quadrant of right breast in female, estrogen receptor positive: Plan Sepsis/neutropenic fever Immunocompromised patient hx recurrent right breast cancer status post surgery ongoing adjuvant chemotherapy Hx Mediport infection (Achromobacter and Pseudomonas) status post Ciprofloxacin course last month Subsequently Mediport removal and replacement with with chest tunneled CVC (at [facility] by IR) Abnormal LFTs, possibly from chemotherapy medications/natural supplements Hyperglycemia rule out DM - current A1c 5.4% Mrs. Whaley is a 52-year-old female with breast cancer s/p R mastectomy currently under CMF chemo treatment that presented to the ED today with fever and chills that started at 1130 this morning. Recent infection at insertion site of port catheter; wound culture done on 01/18 and on 01/20 wound culture positive for pseudomonas aeruginosa; treated with THREE antibiotics; Cipro, Bactrim and she can not recall the third. Port tip culture sent and negative on 02/12. Follows with Dr. Mckayla Dillon at [facility]; completed 2/8 rounds of chemo; next round scheduled for Thursday 03/08. Radiation scheduled after completion of chemo which is planned for June. Neutropenic 1.70; no pancytopenia. Transaminitis AST 54, ALT 61, alk phos 114; procalcitonin 4.90. Liver US negative. Chest x-ray negative for acute cardiopulmonary disease. Current power port insertion directly next to recent insertion wound infection; trend labs including LFT's, blood cultures obtained and Daptomycin added to cefepime for broad spectrum coverage including MRSA coverage. Consider power port removal with tip culture if no improvement. Neutropenic fever: WBC 1.70 on admission Transaminitis AST 54, ALT 61, alk phos 114 No abdominal pain; obtained liver ultrasound- No acute findings in the right upper quadrant. UA and BioFire negative Blood and sputum cultures ordered Blood cultx - positive for GNB (Enterobacterales) Recent infection at insertion site of port catheter; wound culture done on 01/18 and on 01/20 wound culture positive for pseudomonas aeruginosa; + (Achromobacter), treated with PO antibiotics;keflex then Cipro, Bactrim as outpt Port was removed on 02/12 and tip culture sent and negative. New port was placed at [facility] by IR (per pt) Cefepime started in ED; will continue and Daptomycin added on admission - will continue and and adjust based on culture results Current power port insertion directly next to recent insertion wound infection; trend labs including LFT's. If no improvement, consider power port removal with tip culture if no improvement. ID consulted Malignant neoplasm of right breast: Follows with Dr. Mckayla Dillon at [facility] where she receives her chemo; she has completed 2/8 rounds of chemo; next round scheduled for Thursday 03/08. Takes CMF chemotherapy. Follows with Dr. Rene with [facility] surgical oncology recurrent ER+, MO positive, H ER 2 negative recurrent right breast invasive ductal carcinoma status post right mastectomy with reconstruction 10/30/2022 with 2/2 positive nodes and ALND Radiation scheduled after completion of chemo which is planned for June 2023 Last PET scan 09/27 negative for metastasis. Disposition: PCP: Dr. Stiles CODE STATUS: Full code VTE prophylaxis: lovenox Admission and Anticipated Discharge Date Admission Date: March 05, 2023 Subjective Pt seen in follow up of neutropenic fever, GNB bacteremia Currently says she is feeling better overall Her and space and missile defense operations from her sikhism present at the bedside. Her cousin on the phone (who is a PA) also updated over the phone. Pt reports no chest pain, shortness of breath, abd. pain, no diarrhea. Had nausea before, now says she was able to eat breakfast. ID consult placed. Review of Systems Review of Systems: All systems reviewed & are unremarkable except as noted in Subjective Physical Exam Physical Exam: General : WD/WN F in NAD HEENT: head normocephalic, mo ist mucus membrane s CV: S1/S2, (-) M /G/R, (-) edema Re sp: Lungs CTA in a ll strong. On RA G I: Abdomen S/NT/ND , Ax4 bowel sounds , (-) CVA tenderne ss Musculoskeletal : Moves extremitie s Neuro: alert and oriented, answers appropriately, PE RRL, no facial asy mmetry, speech flu ent, moves extremi ties Skin: (-) pao hes , (-) erythema . Psych: euthymic mood Results & Data Results & Data Vital Signs (Past 12 Hours) Vital Signs Temp Pulse Pulse Resp BP Pulse Ox O2 Del Method 03/06/23 08:01 37.1 C 84 16 93/60 L 96 Room Air 03/06/23 07:38 85 03/06/23 06:43 36.9 C 03/06/23 02:10 39.5 C H 18 152/78 H 98 Room Air 03/06/23 01:37 98 H 26 H 147/79 H 99 Room Air 03/06/23 00:04 96 H 27 H 127/70 96 Room Air 03/05/23 23:16 106 H Laboratory Results 03/06/23 03/05/23 03/05/23 Range/Units 05:51 18:36 18:07 WBC 0.94 L* (4.8-10.8) K/ul RBC 3.82 L (4.20-5.40) M/uL Hgb 11.4 L (12.0-16.0) g/dl Hct 33.3 L (37.0-47.0) % MCV 87.2 (80.0-100.0) fL MCH 29.8 (25.0-34.0) pg MCHC 34.2 (32.0-36.0) g/dL RDW Std Deviation 42.0 (36.4-46.3) fL RDW Coeff of Julian 13.5 (11.5-14.5) % Plt Count 146 (130-400) K/uL MPV 9.0 L (9.4-12.4) fL Immature Gran % (Auto) 5.3 % Neut % (Auto) 48.9 % Lymph % (Auto) 18.1 % Phelps % (Auto) 26.6 % Eos % (Auto) 0.0 % Baso % (Auto) 1.1 % Neut # (Auto) 0.46 L* (1.40-6.50) K/uL Lymph # (Auto) 0.17 L (1.2-3.4) K/uL Phelps # (Auto) 0.25 (0.11-0.59) K/uL Eos # (Auto) 0.00 (0-0.50) K/uL Baso # (Auto) 0.01 (0-0.2) K/uL Immature Gran # (Auto) 0.05 (0.01-0.20) K/uL Sodium (136-145) mmol/L Potassium (3.5-5.1) mmol/L Chloride (98-107) mmol/L Carbon Dioxide (21-32) mmol/L Anion Gap (3-11) BUN (6-23) mg/dl Creatinine (0.6-1.2) mg/dl Est Cr Clr Drug Dosing ml/min Est GFR ( Amer) ml/min Est GFR (Non-Af Amer) ml/min BUN/Creatinine Ratio (10-20) Glucose (70-99(Fasting)) mg/dl Estimat Average Glucose mg/dl Hemoglobin A1c (4.5-5.6) % Lactate 1.9 (0.4-2.0) mmol/L Calcium (8.6-10.3) mg/dl Magnesium (1.7-2.4) mg/dl Total Bilirubin (0.2-1.0) mg/dl Direct Bilirubin (0-0.2) mg/dl AST (13-39) U/L ALT (7-52) U/L Alkaline Phosphatase (34-104) U/L Troponin I High Sens (0-14) pg/ml Total Protein (6.0-8.3) gm/dl Albumin (3.4-5.0) gm/dl Procalcitonin (0-0.5) ng/ml Urine Color Yellow Urine Appearance Clear (Clear) Urine pH 7.0 (4.5-7.5) Ur Specific [place] 1.004 (1.000-1.030) Urine Protein Negative (Negative) Urine Glucose (UA) Negative (Negative) Urine Ketones Negative (Negative) Urine Blood Negative (Negative) Urine Nitrite Negative (Negative) Urine Bilirubin Negative (Negative) Urine Urobilinogen Negative (Negative) Ur Leukocyte Esterase Negative (Negative) Adenovirus (PCR) (NotDetected) B. pertussis DNA (PCR) (NotDetected) B.parapertussis DNA PCR (NotDetected) C. pneumoniae DNA (PCR) (NotDetected) Coronavirus OC43 (PCR) (NotDetected) Coronavirus HKU1 (PCR) (NotDetected) Coronavirus 229E (PCR) (NotDetected) SARS-CoV-2 (PCR) (NotDetected) Coronavirus NL63 (PCR) (NotDetected) Enterobacterales (PCR) (NotDetected) Human Metapneumovir PCR (NotDetected) Influenza Type A (PCR) (NotDetected) Influenza Type B (PCR) (NotDetected) M. pneumoniae (PCR) (NotDetected) Parainfluenza 1 (PCR) (NotDetected) Parainfluenza 2 (PCR) (NotDetected) Parainfluenza 3 (PCR) (NotDetected) Parainfluenza 4 (PCR) (NotDetected) RSV (PCR) (NotDetected) Entero/Rhino (PCR) (NotDetected) blaIMP Car res Gene PCR (NotDetected) KPC-Carbap Res Gene PCR (NotDetected) blaNDM Car Res Gene PCR (NotDetected) OXA-48 Carbapenem Resis Gene (PCR) (NotDetected) blaVIM Car Res Gene PCR (NotDetected) CTX-M Gene Resistance (PCR) (NotDetected) Bld Cult ID Panel PCR (NotDetected) 03/05/23 03/05/23 03/05/23 Range/Units 17:26 17:20 17:20 WBC (4.8-10.8) K/ul RBC (4.20-5.40) M/uL Hgb (12.0-16.0) g/dl Hct (37.0-47.0) % MCV (80.0-100.0) fL MCH (25.0-34.0) pg MCHC (32.0-36.0) g/dL RDW Std Deviation (36.4-46.3) fL RDW Coeff of Julian (11.5-14.5) % Plt Count (130-400) K/uL MPV (9.4-12.4) fL Immature Gran % (Auto) % Neut % (Auto) % Lymph % (Auto) % Phelps % (Auto) % Eos % (Auto) % Baso % (Auto) % Neut # (Auto) (1.40-6.50) K/uL Lymph # (Auto) (1.2-3.4) K/uL Phelps # (Auto) (0.11-0.59) K/uL Eos # (Auto) (0-0.50) K/uL Baso # (Auto) (0-0.2) K/uL Immature Gran # (Auto) (0.01-0.20) K/uL Sodium (136-145) mmol/L Potassium (3.5-5.1) mmol/L Chloride (98-107) mmol/L Carbon Dioxide (21-32) mmol/L Anion Gap (3-11) BUN (6-23) mg/dl Creatinine (0.6-1.2) mg/dl Est Cr Clr Drug Dosing ml/min Est GFR ( Amer) ml/min Est GFR (Non-Af Amer) ml/min BUN/Creatinine Ratio (10-20) Glucose (70-99(Fasting)) mg/dl Estimat Average Glucose 108 mg/dl Hemoglobin A1c 5.4 (4.5-5.6) % Lactate (0.4-2.0) mmol/L Calcium (8.6-10.3) mg/dl Magnesium (1.7-2.4) mg/dl Total Bilirubin (0.2-1.0) mg/dl Direct Bilirubin (0-0.2) mg/dl AST (13-39) U/L ALT (7-52) U/L Alkaline Phosphatase (34-104) U/L Troponin I High Sens (0-14) pg/ml Total Protein (6.0-8.3) gm/dl Albumin (3.4-5.0) gm/dl Procalcitonin (0-0.5) ng/ml Urine Color Urine Appearance (Clear) Urine pH (4.5-7.5) Ur Specific [place] (1.000-1.030) Urine Protein (Negative) Urine Glucose (UA) (Negative) Urine Ketones (Negative) Urine Blood (Negative) Urine Nitrite (Negative) Urine Bilirubin (Negative) Urine Urobilinogen (Negative) Ur Leukocyte Esterase (Negative) Adenovirus (PCR) Not Detected (NotDetected) B. pertussis DNA (PCR) Not Detected (NotDetected) B.parapertussis DNA PCR Not Detected (NotDetected) C. pneumoniae DNA (PCR) Not Detected (NotDetected) Coronavirus OC43 (PCR) Not Detected (NotDetected) Coronavirus HKU1 (PCR) Not Detected (NotDetected) Coronavirus 229E (PCR) Not Detected (NotDetected) SARS-CoV-2 (PCR) Not Detected (NotDetected) Coronavirus NL63 (PCR) Not Detected (NotDetected) Enterobacterales (PCR) DETECTED A (NotDetected) Human Metapneumovir PCR Not Detected (NotDetected) Influenza Type A (PCR) Not Detected (NotDetected) Influenza Type B (PCR) Not Detected (NotDetected) M. pneumoniae (PCR) Not Detected (NotDetected) Parainfluenza 1 (PCR) Not Detected (NotDetected) Parainfluenza 2 (PCR) Not Detected (NotDetected) Parainfluenza 3 (PCR) Not Detected (NotDetected) Parainfluenza 4 (PCR) Not Detected (NotDetected) RSV (PCR) Not Detected (NotDetected) Entero/Rhino (PCR) Not Detected (NotDetected) blaIMP Car res Gene PCR Not Detected (NotDetected) KPC-Carbap Res Gene PCR Not Detected (NotDetected) blaNDM Car Res Gene PCR Not Detected (NotDetected) OXA-48 Carbapenem Resis Gene (PCR) Not Detected (NotDetected) blaVIM Car Res Gene PCR Not Detected (NotDetected) CTX-M Gene Resistance (PCR) Not Detected (NotDetected) Bld Cult ID Panel PCR See PCR Comment (NotDetected) 03/05/23 03/05/23 03/05/23 Range/Units 17:20 17:20 17:20 WBC 1.70 L (4.8-10.8) K/ul RBC 4.07 L (4.20-5.40) M/uL Hgb 12.1 (12.0-16.0) g/dl Hct 35.2 L (37.0-47.0) % MCV 86.5 (80.0-100.0) fL MCH 29.7 (25.0-34.0) pg MCHC 34.4 (32.0-36.0) g/dL RDW Std Deviation 41.1 (36.4-46.3) fL RDW Coeff of Julian 13.3 (11.5-14.5) % Plt Count 166 (130-400) K/uL MPV 9.0 L (9.4-12.4) fL Immature Gran % (Auto) 0.6 % Neut % (Auto) 64.1 % Lymph % (Auto) 12.9 % Phelps % (Auto) 21.2 % Eos % (Auto) 0.6 % Baso % (Auto) 0.6 % Neut # (Auto) 1.09 L (1.40-6.50) K/uL Lymph # (Auto) 0.22 L (1.2-3.4) K/uL Phelps # (Auto) 0.36 (0.11-0.59) K/uL Eos # (Auto) 0.01 (0-0.50) K/uL Baso # (Auto) 0.01 (0-0.2) K/uL Immature Gran # (Auto) 0.01 (0.01-0.20) K/uL Sodium 138 (136-145) mmol/L Potassium 3.7 (3.5-5.1) mmol/L Chloride 107 (98-107) mmol/L Carbon Dioxide 24 (21-32) mmol/L Anion Gap 7 (3-11) BUN 17 (6-23) mg/dl Creatinine 0.82 (0.6-1.2) mg/dl Est Cr Clr Drug Dosing 69.8 ml/min Est GFR ( Amer) 94.7 ml/min Est GFR (Non-Af Amer) 81.7 ml/min BUN/Creatinine Ratio 20.7 H (10-20) Glucose 131 H (70-99(Fasting)) mg/dl Estimat Average Glucose mg/dl Hemoglobin A1c (4.5-5.6) % Lactate (0.4-2.0) mmol/L Calcium 9.6 (8.6-10.3) mg/dl Magnesium 1.8 (1.7-2.4) mg/dl Total Bilirubin 0.5 (0.2-1.0) mg/dl Direct Bilirubin 0.1 (0-0.2) mg/dl AST 54 H (13-39) U/L ALT 61 H (7-52) U/L Alkaline Phosphatase 114 H (34-104) U/L Troponin I High Sens 2.8 (0-14) pg/ml Total Protein 6.8 (6.0-8.3) gm/dl Albumin 4.2 (3.4-5.0) gm/dl Procalcitonin 4.90 H (0-0.5) ng/ml Urine Color Urine Appearance (Clear) Urine pH (4.5-7.5) Ur Specific [place] (1.000-1.030) Urine Protein (Negative) Urine Glucose (UA) (Negative) Urine Ketones (Negative) Urine Blood (Negative) Urine Nitrite (Negative) Urine Bilirubin (Negative) Urine Urobilinogen (Negative) Ur Leukocyte Esterase (Negative) Adenovirus (PCR) (NotDetected) B. pertussis DNA (PCR) (NotDetected) B.parapertussis DNA PCR (NotDetected) C. pneumoniae DNA (PCR) (NotDetected) Coronavirus OC43 (PCR) (NotDetected) Coronavirus HKU1 (PCR) (NotDetected) Coronavirus 229E (PCR) (NotDetected) SARS-CoV-2 (PCR) (NotDetected) Coronavirus NL63 (PCR) (NotDetected) Enterobacterales (PCR) (NotDetected) Human Metapneumovir PCR (NotDetected) Influenza Type A (PCR) (NotDetected) Influenza Type B (PCR) (NotDetected) M. pneumoniae (PCR) (NotDetected) Parainfluenza 1 (PCR) (NotDetected) Parainfluenza 2 (PCR) (NotDetected) Parainfluenza 3 (PCR) (NotDetected) Parainfluenza 4 (PCR) (NotDetected) RSV (PCR) (NotDetected) Entero/Rhino (PCR) (NotDetected) blaIMP Car res Gene PCR (NotDetected) KPC-Carbap Res Gene PCR (NotDetected) blaNDM Car Res Gene PCR (NotDetected) OXA-48 Carbapenem Resis Gene (PCR) (NotDetected) blaVIM Car Res Gene PCR (NotDetected) CTX-M Gene Resistance (PCR) (NotDetected) Bld Cult ID Panel PCR (NotDetected) Medications Administered Current Inpatient Medications Acetaminophen (Acetaminophen 500 Mg Tab) 500 mg PO Q6H PRN PRN Reason: Pain/Fever Stop: 04/04/23 22:14 Last Admin: 03/06/23 03:00 Dose: 500 mg Enoxaparin Sodium (Enoxaparin Inj 40 Mg/0.4 Ml Syr) 40 mg SQ QAM [facility] Stop: 04/05/23 08:59 Last Admin: 03/06/23 09:19 Dose: Not Given Daptomycin 350 mg/ Syringe 7 mls @ 3 mls/min IV Q24H [facility]; Protocol Stop: 03/07/23 22:59 Last Admin: 03/05/23 23:45 Dose: 3 mls/min Cefepime HCl 2,000 mg/ Syringe 20 mls @ 5 mls/min IV Q8H [facility]; Protocol Stop: 03/20/23 05:59 Last Admin: 03/06/23 06:40 Dose: 5 mls/min Promethazine HCl 12.5 mg/ (Sodium Chloride) 50.5 mls @ 202 mls/hr IV Q6H PRN PRN Reason: Nausea And Vomiting Stop: 04/04/23 22:14 Last Infusion: 03/06/23 03:21 Dose: Infused Potassium Chloride/Sodium Chloride (Normal Saline W/20 Meq Kcl) 20 meq in 1,000 mls @ 100 mls/hr IV .Q10H [facility]; Protocol Stop: 03/06/23 12:59 Last Admin: 03/06/23 03:11 Dose: 100 mls/hr Ibuprofen (Ibuprofen 200 Mg Tab) 200 mg PO Q6H PRN PRN Reason: Mild Pain (Scale 1, 2, 3) Stop: 04/04/23 22:14 Last Admin: 03/06/23 06:40 Dose: 200 mg Ketorolac Tromethamine (Ketorolac Tromethamine 15 Mg/Ml Vial) 15 mg IV Q6H PRN PRN Reason: Pain Stop: 03/10/23 22:14 Lorazepam (Lorazepam 0.5 Mg Tab) 0.5 mg PO TID PRN PRN Reason: Anxiety Stop: 04/04/23 22:14 Sertraline HCl (Sertraline Hcl 50 Mg Tablet) [facility] Stop: 04/05/23 08:59 Last Admin: 03/06/23 09:14 Dose: 50 mg
[2023-03-06] MEDS: Cefepime 2,000 MG Extended Infusion IV SCH ×2 (13:55→22:30)
[2023-03-06] MEDS ORDERED: OPTIRAY 320 100ml IV ONE (20:46)
--- NOTE | 2023-03-06 21:13 | CT Scan Report ---
Exam(s): CT CHEST With Contrast IV Amt: 92 ml optiray 320 EXAM: CT Chest With Intravenous Contrast CLINICAL HISTORY: Reason for exam: r/o infect. source/ abscess. TECHNIQUE: Axial computed tomography images of the chest with intravenous contrast. CTDI is 14.21 mGy and DLP is 693.26 mGy-cm. Automated exposure control was utilized for the study. A dose lowering technique was utilized adhering to the principles of ALARA. CONTRAST: Patient received 92 ml optiray 320 of IV contrast COMPARISON: No relevant prior studies available. FINDINGS: Lungs: Calcified granuloma in the RIGHT lower lobe. Pleural space: Unremarkable. No pneumothorax. No significant effusion. Heart: Unremarkable. No cardiomegaly. No significant pericardial effusion. No significant coronary artery calcifications. Thyroid: RIGHT thyroid nodule measures 9 mm. Bones/joints: Unremarkable. No acute fracture. No dislocation. 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 Vasculature: Central venous catheter terminates in the SVC. No thoracic aortic aneurysm. Lymph nodes: Unremarkable. No enlarged lymph nodes. IMPRESSION: No pneumonia. Electronically signed by: Yadiel Gonzales MD 03/06/23 21:12 PM
--- NOTE | 2023-03-06 21:14 | CT Scan Report ---
Exam(s): CT ABDOMEN + PELVIS With Contrast IV Amt: 92 ml optiray 320 EXAM: CT Abdomen and Pelvis With Intravenous Contrast CLINICAL HISTORY: Reason for exam: r/o infect. source/ abscess. TECHNIQUE: Axial computed tomography images of the abdomen and pelvis with intravenous contrast. CTDI is 14.98 mGy and DLP is 491.24 mGy-cm. Automated exposure control was utilized for the study. A dose lowering technique was utilized adhering to the principles of ALARA. CONTRAST: Patient received 92 ml optiray 320 of IV contrast COMPARISON: No relevant prior studies available. FINDINGS: Lung bases: Unremarkable. No mass. No consolidation. ABDOMEN: Liver: Unremarkable. No mass. Gallbladder and bile ducts: Unremarkable. No calcified stones. No ductal dilation. Pancreas: Unremarkable. No mass. No ductal dilation. Spleen: Unremarkable. No splenomegaly. Adrenals: Unremarkable. No mass. Kidneys and ureters: Unremarkable. No hydronephrosis or delayed nephrogram. Stomach and bowel: Mild fecal retention, correlate for constipation. No small bowel obstruction. No free air. No mucosal thickening. PELVIS: Appendix: No findings to suggest acute appendicitis. Bladder: Unremarkable. No mass. Reproductive: Unremarkable as visualized. ABDOMEN and PELVIS: Intraperitoneal space: See above. Bones/joints: No acute fracture. No dislocation. Soft tissues: Unremarkable. Vasculature: Unremarkable. No abdominal aortic aneurysm. Lymph nodes: Unremarkable. No enlarged lymph nodes. IMPRESSION: 1. No hydronephrosis or delayed nephrogram. 2. Mild fecal retention, correlate for constipation. No small bowel obstruction. No free air. Electronically signed by: Yadiel Gonzales MD 03/06/23 21:13 PM
[2023-03-06] MEDS: DAPTOmycin 350 MG in SYRINGE 0 ML IV SCH (22:30)
[2023-03-07] MEDS: Cefepime 2,000 MG Extended Infusion IV SCH ×3 (06:21→21:21)
[2023-03-07 06:32] LABS: Hematocrit (blood only) 35.6 % (37.0-47.0); Hemoglobin 12.5 g/dl (12.0-16.0); Mean Corpuscular Hemoglobin 30.6 pg (25.0-34.0); Mean Corpuscular Hgb Conc 35.1 g/dL (32.0-36.0); Mean Platelet Volume 10.7 fL (9.4-12.4); Platelet Count 162 K/uL (130-400); RDW Coefficient of Variation 14.1 % (11.5-14.5); RDW Standard Deviation 44.2 fL (36.4-46.3); Red Blood Count 4.09 M/uL (4.20-5.40); White Blood Count 1.49 K/ul (4.8-10.8)
[2023-03-07 06:54] LABS: BUN Creatinine Ratio 10.7 (10-20); Basophils # (auto) 0.01 K/uL (0-0.2); Basophils % (auto) 0.7 %; Creatinine Clr Calc Pharmacy 75.7 ml/min; Eosinophils # (auto) 0.11 K/uL (0-0.50); Eosinophils % (auto) 7.4 %; Est GFR (African American) 105.5 ml/min; Immature Granulocytes # (auto) 0.02 K/uL (0.01-0.20); Immature Granulocytes % (auto) 1.3 %; Lymphocytes % (auto) 40.3 %; Monocytes # (auto) 0.32 K/uL (0.11-0.59); Monocytes % (auto) 21.5 %; Neutrophils # (auto) 0.43 K/uL (1.40-6.50); Neutrophils % (auto) 28.8 %; Phosphorus 2.3 mg/dl (2.5-4.9); Potassium 4.1 mmol/L (3.5-5.1)
[2023-03-07 06:58] LABS: Prothrombin Time 11.4 Seconds (9.0-12.0)
--- NOTE | 2023-03-07 09:19 | Hospitalist Progress Note ---
Date of Service March 07, 2023 Assessment & Plan (1) Neutropenic fever: (2) Malignant neoplasm of upper-outer quadrant of right breast in female, estrogen receptor positive: Plan Sepsis/neutropenic fever Immunocompromised patient hx recurrent right breast cancer status post surgery ongoing adjuvant chemotherapy Hx Mediport infection (Achromobacter and Pseudomonas) status post Ciprofloxacin course last month Subsequently Mediport removal and replacement with with chest tunneled CVC (at [facility] by IR) Abnormal LFTs, possibly from chemotherapy medications/natural supplements Hyperglycemia rule out DM - current A1c 5.4% Mrs. Whaley is a 52-year-old female with breast cancer s/p R mastectomy currently under [facility] chemo treatment that presented to the ED today with fever and chills that started at 1130 this morning. Recent infection at insertion site of port catheter; wound culture done on 01/18 and on 01/20 wound culture positive for pseudomonas aeruginosa; treated with THREE antibiotics; Cipro, Bactrim and she can not recall the third. Port tip culture sent and negative on 02/12. Follows with Dr. Mckayla Dillon at [facility], [place]; completed 2/8 rounds of chemo; next round scheduled for Thursday 03/08. Radiation scheduled after completion of chemo which is planned for June. Neutropenic 1.70; no pancytopenia. Transaminitis AST 54, ALT 61, alk phos 114; procalcitonin 4.90. Liver US negative. Chest x-ray negative for acute cardiopulmonary disease. Current power port insertion directly next to recent insertion wound infection; trend labs including LFT's, blood cultures obtained and Daptomycin added to cefepime for broad spectrum coverage including MRSA coverage. Consider power port removal with tip culture if no improvement. Neutropenic fever: WBC 1.70 on admission Transaminitis AST 54, ALT 61, alk phos 114 No abdominal pain; obtained liver ultrasound- No acute findings in the right upper quadrant. UA and BioFire negative Blood and sputum cultures ordered Blood cultx - positive for GNB (Enterobacterales) Recent infection at insertion site of port catheter; wound culture done on 01/18 and on 01/20 wound culture positive for pseudomonas aeruginosa; + (Achromobacter), treated with PO antibiotics;keflex then Cipro, Bactrim as outpt Port was removed on 02/12 and tip culture sent and negative. New port was placed at [facility] by IR (per pt) Cefepime started in ED; will continue and Daptomycin added on admission - will continue and and adjust based on culture results Current power port insertion directly next to recent insertion wound infection; trend labs including LFT's. If no improvement, consider power port removal with tip culture if no improvement. ID consulted - recommend CT chest abdomen pelvis with IV and oral contrast, tunneled line removal. Repeat blood cultx. Surgery was consulted, and tunneled CVC line was removed today 03/07/2023 Surgery also discussed with oncology, and Neupogen was ordered by Dr. Jordan CT imaging obtained and w/o any source of infection/ abscess Repeat blood cultx obtained and pending CBC w/ diff ordered Malignant neoplasm of right breast: Follows with Dr. Mckayla Dillon at [facility], [place] where she receives her chemo; she has completed 2/8 rounds of chemo; next round scheduled for Thursday 03/08. Takes CMF chemotherapy. Follows with Dr. Rene with [facility] surgical oncology recurrent ER+, MD positive, H ER 2 negative recurrent right breast invasive ductal carcinoma status post right mastectomy with reconstruction 10/30/2022 with 2/2 positive nodes and ALND Radiation scheduled after completion of chemo which is planned for June 2023 Last PET scan 09/27 negative for metastasis. Disposition: PCP: Dr. Stiles CODE STATUS: Full code VTE prophylaxis: lovenox Admission and Anticipated Discharge Date Admission Date: March 05, 2023 Subjective Pt seen in follow up of neutropenic fever, GNB bacteremia Discussed w/ ID yesterday and recommended tunneled cvc removed - surgery consulted and line was removed earlier today Currently pt is sitting up in bed in NAD , overall says she is feeling better Pt reports no fever, chills, chest pain, shortness of breath, abd. pain. Surgery discussed w/ hem/onc and neupogen was given Review of Systems Review of Systems: All systems reviewed & are unremarkable except as noted in Subjective Physical Exam Physical Exam: General : WD/WN F in NAD HEENT: head normocephalic, mo ist mucus membrane s CV: S1/S2, (-) M /G/R, (-) edema Re sp: Lungs CTA in a ll strong. On RA G I: Abdomen S/NT/ND , Ax4 bowel sounds , (-) CVA tenderne ss Musculoskeletal : Moves extremitie s Neuro: alert and oriented, answers appropriately, PE RRL, no facial asy mmetry, speech flu ent, moves extremi ties Skin: (-) pao hes , (-) erythema . Psych: euthymic mood Results & Data Results & Data Vital Signs (Past 12 Hours) Vital Signs Temp Pulse Pulse Resp BP Pulse Ox O2 Del Method 03/07/23 07:38 36.8 C 83 18 116/81 97 Room Air 03/07/23 07:28 81 03/07/23 03:00 36.9 C 75 18 95/56 L 97 Room Air 03/06/23 23:07 61 03/06/23 22:00 36.7 C 77 18 104/63 97 Room Air Laboratory Results 03/07/23 03/07/23 03/07/23 Range/Units 05:56 05:56 05:56 WBC (4.8-10.8) K/ul RBC (4.20-5.40) M/uL Hgb (12.0-16.0) g/dl Hct (37.0-47.0) % MCV (80.0-100.0) fL MCH (25.0-34.0) pg MCHC (32.0-36.0) g/dL RDW Std Deviation (36.4-46.3) fL RDW Coeff of Julian (11.5-14.5) % Plt Count (130-400) K/uL MPV (9.4-12.4) fL Immature Gran % (Auto) % Neut % (Auto) % Lymph % (Auto) % Maries % (Auto) % Eos % (Auto) % Baso % (Auto) % Neut # (Auto) (1.40-6.50) K/uL Lymph # (Auto) (1.2-3.4) K/uL Maries # (Auto) (0.11-0.59) K/uL Eos # (Auto) (0-0.50) K/uL Baso # (Auto) (0-0.2) K/uL Immature Gran # (Auto) (0.01-0.20) K/uL PT 11.4 (9.0-12.0) Seconds INR 1.0 (0.9-1.1) Sodium 139 (136-145) mmol/L Potassium 4.1 (3.5-5.1) mmol/L Chloride 113 H (98-107) mmol/L Carbon Dioxide 22 (21-32) mmol/L Anion Gap 4 (3-11) BUN 8 (6-23) mg/dl Creatinine 0.75 (0.6-1.2) mg/dl Est Cr Clr Drug Dosing 75.7 ml/min Est GFR ( Amer) 105.5 ml/min Est GFR (Non-Af Amer) 91.0 ml/min BUN/Creatinine Ratio 10.7 (10-20) Glucose 109 H (70-99(Fasting)) mg/dl Calcium 9.0 (8.6-10.3) mg/dl Phosphorus 2.3 L (2.5-4.9) mg/dl Magnesium 2.0 (1.7-2.4) mg/dl 25-OH Vitamin D Total 56.2 (30-100) ng/ml 03/07/23 Range/Units 05:56 WBC 1.49 L (4.8-10.8) K/ul RBC 4.09 L (4.20-5.40) M/uL Hgb 12.5 (12.0-16.0) g/dl Hct 35.6 L (37.0-47.0) % MCV 87.0 (80.0-100.0) fL MCH 30.6 (25.0-34.0) pg MCHC 35.1 (32.0-36.0) g/dL RDW Std Deviation 44.2 (36.4-46.3) fL RDW Coeff of Julian 14.1 (11.5-14.5) % Plt Count 162 (130-400) K/uL MPV 10.7 (9.4-12.4) fL Immature Gran % (Auto) 1.3 % Neut % (Auto) 28.8 % Lymph % (Auto) 40.3 % Maries % (Auto) 21.5 % Eos % (Auto) 7.4 % Baso % (Auto) 0.7 % Neut # (Auto) 0.43 L* (1.40-6.50) K/uL Lymph # (Auto) 0.60 L (1.2-3.4) K/uL Maries # (Auto) 0.32 (0.11-0.59) K/uL Eos # (Auto) 0.11 (0-0.50) K/uL Baso # (Auto) 0.01 (0-0.2) K/uL Immature Gran # (Auto) 0.02 (0.01-0.20) K/uL PT (9.0-12.0) Seconds INR (0.9-1.1) Sodium (136-145) mmol/L Potassium (3.5-5.1) mmol/L Chloride (98-107) mmol/L Carbon Dioxide (21-32) mmol/L Anion Gap (3-11) BUN (6-23) mg/dl Creatinine (0.6-1.2) mg/dl Est Cr Clr Drug Dosing ml/min Est GFR ( Amer) ml/min Est GFR (Non-Af Amer) ml/min BUN/Creatinine Ratio (10-20) Glucose (70-99(Fasting)) mg/dl Calcium (8.6-10.3) mg/dl Phosphorus (2.5-4.9) mg/dl Magnesium (1.7-2.4) mg/dl 25-OH Vitamin D Total (30-100) ng/ml Medications Administered Current Inpatient Medications Acetaminophen (Acetaminophen 500 Mg Tab) 500 mg PO Q6H PRN PRN Reason: Pain/Fever Stop: 04/04/23 22:14 Last Admin: 03/06/23 03:00 Dose: 500 mg Enoxaparin Sodium (Enoxaparin Inj 40 Mg/0.4 Ml Syr) 40 mg SQ QAM [facility] Stop: 04/05/23 08:59 Last Admin: 03/06/23 09:19 Dose: Not Given Filgrastim (Filgrastim 480 Mcg/1.6 Ml Vial) 480 mcg SC DAILY [facility] Stop: 03/08/23 09:01 Daptomycin 350 mg/ Syringe 7 mls @ 3 mls/min IV Q24H [facility]; Protocol Stop: 03/07/23 22:59 Last Admin: 03/06/23 22:30 Dose: 3 mls/min Promethazine HCl 12.5 mg/ (Sodium Chloride) 50.5 mls @ 202 mls/hr IV Q6H PRN PRN Reason: Nausea And Vomiting Stop: 04/04/23 22:14 Last Infusion: 03/06/23 03:21 Dose: Infused Cefepime HCl 2,000 mg/ (Dextrose) 120 mls @ 40 mls/hr IV Q8H [facility]; Protocol Stop: 03/20/23 05:59 Last Admin: 03/07/23 06:21 Dose: 40 mls/hr Sodium Chloride (Nss 1000ml) 1,000 mls @ 125 mls/hr IV .Q8H SABIHA Stop: 04/06/23 09:29 Ibuprofen (Ibuprofen 200 Mg Tab) 200 mg PO Q6H PRN PRN Reason: Mild Pain (Scale 1, 2, 3) Stop: 04/04/23 22:14 Last Admin: 03/06/23 06:40 Dose: 200 mg Ketorolac Tromethamine (Ketorolac Tromethamine 15 Mg/Ml Vial) 15 mg IV Q6H PRN PRN Reason: Pain Stop: 03/10/23 22:14 Lorazepam (Lorazepam 0.5 Mg Tab) 0.5 mg PO TID PRN PRN Reason: Anxiety Stop: 04/04/23 22:14 Sertraline HCl (Sertraline Hcl 50 Mg Tablet) 50 mg PO [facility] Stop: 04/05/23 08:59 Last Admin: 03/06/23 09:14 Dose: 50 mg
--- NOTE | 2023-03-07 09:39 | Surgery Consultation ---
Date of Consultation March 07, 2023 Assessment & Plan (1) Neutropenic fever: Regardless of the initial source with the current positive cultures, issues with infection in this region over the last several months, and neutropenia I agree the left subclavian central catheter should be removed. I did attempt to remove this at bedside unsuccessfully. Around the region of the clavicle there appears to be a cuff which will have to be freed up in the operating room. Unfortunately she is drank a large glass of water around 5:30 AM this morning. I spoke with anesthesia. She is stable and we will plan on doing it around noon today. I discussed with her the risks which include bleeding infection vascular injury blood clots etc. She agrees with the plan. We will proceed later today with removal of left subclavian central line in the operating room. (2) Recurrent cancer of right breast: History of Present Illness Attending Physician: Tony Le MD History of Present Illness Patient is a 52-year-old female who is currently being treated for right breast cancer. Prior treatments have all been at outside facilities including the current port which we believe is infected. She has completed 2 out of 8 courses of chemotherapy. She originally had a left subclavian Mediport placed at [place] in December of this year. This subsequently became infected which they tried to salvage using antibiotics. When this failed they remove the port and placed a second left subclavian central catheter. She presented to the emergency room with fevers and chills and is also neutropenic. She was admitted with sepsis. Blood cultures from 8 1 do show gram-negative bacilli. There is no other identifiable source. I am being consulted to remove the left subclavian catheter. Allergies Allergy/AdvReac Type Severity Reaction Status Date / Time adhesive AdvReac Mild Rash Verified 03/05/23 16:55 Home Medications Medication Instructions Recorded Confirmed Type krill 1,000 mg-omega-3 170 mg-dha 1 cap PO QAM 06/28/19 03/05/23 History 50 mg-epa 80 [id number] capsule (krill oil) Coriolus Versicolor SAP mushrooms 500 mg PO DAILY 11/20/22 03/05/23 History MagPure Glycinate 270 mg PO DAILY 11/20/22 03/05/23 History Reacted Calcium with Phosphorous 250 mg PO DAILY 11/20/22 03/05/23 History TetrahydroCurcumin SR 2 cap PO QAM 11/20/22 03/05/23 History Ultraflora Spectrum Probiotic 1 cap PO QAM 11/20/22 03/05/23 History acetaminophen 500 mg tablet 1,000 mg PO Q8H PRN Pain 11/20/22 03/05/23 History (Tylenol Extra Strength) cholecalciferol (vitamin D3) 50 4,000 unit PO QAM 11/20/22 03/05/23 History mcg (2,000 unit) tablet (Vitamin D3) ibuprofen 400 mg tablet 400 mg PO Q8H 11/20/22 03/05/23 History sertraline 50 mg tablet 50 mg PO QAM 11/20/22 03/05/23 History vitamin C Lipsomal 1,600 mg PO DAILY 11/20/22 03/05/23 History vitamin K2 100 mcg capsule 100 mcg PO DAILY 11/20/22 03/05/23 History Patient History Medical History Kidney stone Melanoma in situ Surgical History History of removal of skin mole S/P lumpectomy, right breast Family History Aunt Breast cancer maternal Grandmother (Maternal) Heart disease Myocardial infarction Uncle Heart disease Sister Melanoma Denies family history of Ovarian cancer Prostate cancer Colorectal cancer Social History Smoking Status: Former smoker Hx Alcohol Use: No Hx Substance Use: No Preferred Language: Maltese Communication Ability: Effective Visual Impairment: No Limitations Hearing Ability: Normal Research Rn Spec Required: No Beliefs That Will Affect Care: None marital status: Current Living Situation: Spouse and Family current occupational status: employed Other Information That Helps Us Care for You: No Feels Safe at Home: Yes Safety Concerns: Feels Safe At This Time Diet Comment: Plant based whole food since October, previous vegetarian caffeine: No during the past year weight has: remained stable Physical Activity Frequency: 3-4 Times per Week Assistive Devices: None Review of Systems Review of Systems: All systems reviewed & are unremarkable except as noted in HPI & below Physical Exam Constitutional: WD/WN, vitals as above no acute distress and not ill appearing Eyes: PERRL, conjunctivae normal, anicteric sclerae EOM intact bilaterally ENMT: external ear and nose normal, oropharynx normal Ears: no hearing impairment Neck: trachea midline, no thyromegaly Respiratory: normal respiratory effort; no respiratory distress and does not use accessory muscles Cardiovascular: Rate/Rhythm: regular rate and regular rhythm Chest (Breasts): Additional Comments: Right chest wall tissue welt sewer in the region of the right breast. Left subclavian central catheter in place. Mild erythema. No purulent drainage. Minimally tender. Gastrointestinal (Abdomen): normal bowel sounds, soft, nontender, no hepatosplenomegaly Psychiatric: Orientation: alert, oriented x 3 and cooperative Results & Data Vital Signs (Past 12 Hours) Vital Signs Temp Pulse Pulse Resp BP Pulse Ox O2 Del Method 03/07/23 07:38 36.8 C 83 18 116/81 97 Room Air 03/07/23 07:28 81 03/07/23 03:00 36.9 C 75 18 95/56 L 97 Room Air 03/06/23 23:07 61 03/06/23 22:00 36.7 C 77 18 104/63 97 Room Air PG Care Time/CCT Total # of Minutes Spent Total Time Spent with Patient: Total time spent is greater than 50% in coordination of care (as documented) at patient's floor/unit and/or counseling patient: Coding Level of Care Code 27072 IN/OBS CONSULT LVL 3,45M Diagnoses Neutropenic fever D70.9; R50.81 Recurrent cancer of right breast C50.911
[2023-03-07] MEDS: SODIUM CHLORIDE 0.9% 1000ML 1,000 ML IV SCH ×2 (11:56→23:43)
[2023-03-07] MEDS ORDERED: PROPOFOL IV EMULSION 10 MG/ML 20 ML VIAL IV ONE (12:57)
[2023-03-07] MEDS ORDERED: LIDOCAINE 2% 2 ML VIAL/AMP(20MG/ML) INFIL ONE (12:57)
[2023-03-07] MEDS ORDERED: fentaNYL citrate PF 100 MCG/2 ML VIAL ONE (13:03)
[2023-03-07] MEDS ORDERED: MIDAZOLAM HCL 1 MG/ML 2ML VIAL ONE ×2 (13:03→14:12)
[2023-03-07] MEDS ORDERED: BUPIVACAINE/EPINEPHRINE 0.5% MPF 1:200,000 30 ML VIAL ONE (13:26)
--- NOTE | 2023-03-07 13:44 | Anesthesiology Consultation ---
Date of Service March 07, 2023 Assessment & Plan Chart Review Chart Review: Acceptable Risk for Surgery Consults Requested none ASA ASA3 Proposed Anesthesia Anesthesia Type: MAC Risk / Benefits Reviewed With: PT / POA / Parent / Guardian, Accepts Plan and Informed Consent Obtained Additional Comments: attempted procedure at bedside without success History Surgery Operation Date: 03/07/23 08:25 Proposed Procedures p Removal of Access Port - Jose Rosas, neutropenic fever with place to remove med port d/t concern of infection. attempted procedure at bedside without success. Height/Weight Height: 5 ft 2 in Weight: 63.1 kg Allergies Allergy/AdvReac Type Severity Reaction Status Date / Time adhesive AdvReac Mild Rash Verified 03/05/23 16:55 Medications Home Medications Medication Instructions Recorded Confirmed Last Taken krill 1,000 mg-omega-3 170 mg-dha 1 cap PO QAM 06/28/19 03/05/23 06/28/19 50 mg-epa 80 [id number] capsule (krill oil) Coriolus Versicolor SAP mushrooms 500 mg PO DAILY 11/20/22 03/05/23 Unknown MagPure Glycinate 270 mg PO DAILY 11/20/22 03/05/23 Unknown Reacted Calcium with Phosphorous 250 mg PO DAILY 11/20/22 03/05/23 Unknown TetrahydroCurcumin SR 2 cap PO QAM 11/20/22 03/05/23 Unknown Ultraflora Spectrum Probiotic 1 cap PO QAM 11/20/22 03/05/23 Unknown acetaminophen 500 mg tablet 1,000 mg PO Q8H PRN Pain 11/20/22 03/05/23 Unknown (Tylenol Extra Strength) cholecalciferol (vitamin D3) 50 4,000 unit PO QAM 11/20/22 03/05/23 Unknown mcg (2,000 unit) tablet (Vitamin D3) ibuprofen 400 mg tablet 400 mg PO Q8H 11/20/22 03/05/23 Unknown sertraline 50 mg tablet 50 mg PO QAM 11/20/22 03/05/23 Unknown vitamin C Lipsomal 1,600 mg PO DAILY 11/20/22 03/05/23 Unknown vitamin K2 100 mcg capsule 100 mcg PO DAILY 11/20/22 03/05/23 Unknown Active Medications Generic Name Dose Route Start Last Admin Trade Name Freq PRN Reason Stop Dose Admin Acetaminophen 500 mg 03/05/23 22:15 03/06/23 03:00 Acetaminophen 500 Mg Tab PO 04/04/23 22:14 500 mg Q6H PRN Administration Pain/Fever Enoxaparin Sodium 40 mg 03/06/23 09:00 03/06/23 09:19 Enoxaparin Inj 40 Mg/0.4 Ml Syr SQ 04/05/23 08:59 Not Given QAM SABIHA Daptomycin 350 mg/ Syringe 7 mls @ 3 mls/min 03/05/23 23:00 03/06/23 22:30 IV 03/07/23 22:59 3 mls/min Q24H SABIHA Administration Protocol Promethazine HCl 12.5 mg/ 50.5 mls @ 202 mls/hr 03/05/23 22:15 03/06/23 03:21 Sodium Chloride IV 04/04/23 22:14 Infused Q6H PRN Infusion Nausea And Vomiting Cefepime HCl 2,000 mg/ 120 mls @ 40 mls/hr 03/06/23 14:00 03/07/23 10:56 Dextrose IV 03/20/23 05:59 Infused Q8H SABIHA Infusion Protocol Sodium Chloride 1,000 mls @ 125 mls/hr 03/07/23 09:30 03/07/23 12:16 Nss 1000ml IV 04/06/23 09:29 0 mls/hr .Q8H S[facility] Infusion Ibuprofen 200 mg 03/05/23 22:15 03/06/23 06:40 Ibuprofen 200 Mg Tab PO 04/04/23 22:14 200 mg Q6H PRN Administration Mild Pain (Scale 1, 2, 3) Sertraline HCl 50 mg 03/06/23 09:00 03/06/23 09:14 Sertraline Hcl 50 Mg Tablet PO 04/05/23 08:59 50 mg QAM SABIHA Administration NPO Date Last Intake of Fluids: 03/07/23 Time Last Intake of Fluids: 07:30 Date Last Intake of Solids: 03/06/23 Time Last Intake of Solids: 20:30 Past Medical History Medical History Kidney stone Melanoma in situ Exercise / Class Metabolic Activity II 4-5 Yardwork/Stairs/Walk up hill Past Family History Family History Aunt Breast cancer maternal Grandmother (Maternal) Heart disease Myocardial infarction Uncle Heart disease Sister Melanoma Denies family history of Ovarian cancer Prostate cancer Colorectal cancer Past Surgical History Surgical History History of removal of skin mole S/P lumpectomy, right breast Past Anesthesia History No Hx of Anesthesia Complications and No Family Hx of Anesthesia Complications History of PONV No Hx of PONV and No Hx of Motion Sickness Social History Smoking Status: Former smoker Hx Alcohol Use: No Hx Substance Use: No Review of Systems ROS Unobtainable: All systems reviewed & are unremarkable except as noted in HPI & below Physical Exam Vital Signs Last Vital Signs Temp 36.8 C 03/07/23 12:38 Pulse 90 03/07/23 12:38 Resp 21 03/07/23 12:38 BP 110/76 03/07/23 12:38 Pulse Ox 98 03/07/23 12:38 O2 Del Method Room Air 03/07/23 12:38 Constitutional no acute distress ENMT Mouth: no dentition abnormality Thyromental Distance: > or= 3.5 Finger Breadths Mallampati Class: II Neck normal visual inspection Respiratory normal respiratory effort; no respiratory distress Cardiovascular Rate/Rhythm: regular rate and regular rhythm Neurologic moves all extremities Psychiatric Orientation: alert and oriented x 3 Testing Laboratory Results 03/07/23 05:56 03/07/23 05:56 PT 11.4 Seconds (9.0-12.0) 03/07/23 05:56 INR 1.0 (0.9-1.1) 03/07/23 05:56 Hemoglobin A1c 5.4 % (4.5-5.6) 03/05/23 17:20 Urine Color Yellow 03/05/23 18:07 Urine Appearance Clear (Clear) 03/05/23 18:07 Urine pH 7.0 (4.5-7.5) 03/05/23 18:07 Ur Specific [place] 1.004 (1.000-1.030) 03/05/23 18:07 Urine Protein Negative (Negative) 03/05/23 18:07 Urine Glucose (UA) Negative (Negative) 03/05/23 18:07 Urine Ketones Negative (Negative) 03/05/23 18:07 Urine Nitrite Negative (Negative) 03/05/23 18:07 Ur Leukocyte Esterase Negative (Negative) 03/05/23 18:07 03/05/23 17:20 Aerobic Blood Culture - Preliminary Blood Gram negative bacilli Anaerobic Blood Culture - Preliminary Gram negative bacilli 03/05/23 18:36 Aerobic Blood Culture - Preliminary Blood No growth in Aerobic bottle after 24 hours. Anaerobic Blood Culture - Preliminary No growth in Anaerobic bottle after 24 hours. 03/07/23 13:22 POC Ur Test NEG
[2023-03-07] MEDS ORDERED: ePHEDrine sulfate 50 MG/ML AMP IV PRN (13:46)
[2023-03-07] MEDS ORDERED: fentaNYL citrate PF 100 MCG/2 ML VIAL IV PRN (13:46)
[2023-03-07] MEDS ORDERED: ATROPINE SULFATE 0.1 MG/ML 10ML SYR IV PRN (13:46)
--- NOTE | 2023-03-07 14:36 | Operative Report ---
PG Post Operative Report Pre & Post Diagnosis Operation Date: 03/07/23 08:25 <No data on this case meets the specified criteria> Pre: left supraclavicular central venous catheter in place Post op: left supraclavicular central venous catheter in place I identified the patient and participated in the time-out.: Yes Procedure Operation Date: 03/07/23 08:25 <No data on this case meets the specified criteria> removal left supraclavicular central venous catheter Surgeon Jose Rosas, Miller Apprentice n/a Estimated Blood Loss 5 Findings Consistent with Post-Op Diagnosis Specimens catheter tip for culture Description of Procedure After informed consent was obtained the patient was placed in a supine position and IV sedation administered by anesthesia. The left raul-clavicular catheter and the entire neck and upper chest were sterilely prepped and draped in usual fashion. The patient was placed in a slight reverse Trendelenburg position. I began by using Marcaine to inject around the scar in the supraclavicular region. I then opened this old scar with 11 blade scalpel. I was able to use hemostats to dissect the catheter. It was adhesed to soft tissue which I had to free up using sharp scissor lysis. Eventually I was able to free up the catheter and remove it from the supraclavicular region. We held pressure for several minutes. Once this was done I then used a hemostat to spread the entrance point of the catheter at the skin on the upper chest. I was able to free up the cuff which had adhesed to soft tissue as well. Once I did this I was able to manua lly remove the entire catheter intact. Approximately the distal 2 cm were placed in a sterile container and sent for culture. Both incisions were irrigated. The incision on the neck was closed using Dermabond glue and a Band- Aid placed over the left upper chest wound. The patient was awakened and transferred recovery in stable condition. She tolerated the procedure well. I attest to the content of the Intraoperative Record and any orders documented therein. Any exceptions are noted below.
--- NOTE | 2023-03-07 14:38 | Anesthesiology Progress Note ---
Date of Service March 07, 2023 Anesthesia Post Procedure Vital Signs Vital Signs: Temp Pulse Pulse Pulse Resp BP Pulse Ox 03/07/23 12:38 36.8 C 90 21 110/76 98 03/07/23 10:51 36.9 C 91 H 18 127/79 99 03/07/23 07:38 36.8 C 83 18 116/81 97 03/07/23 07:28 81 03/07/23 03:00 36.9 C 75 18 95/56 L 97 03/06/23 23:07 61 03/06/23 22:00 36.7 C 77 18 104/63 97 03/06/23 19:00 36.8 C 74 18 98/61 L 98 03/06/23 16:16 91 H 03/06/23 15:35 36.6 C 63 16 95/53 L 96 O2 Del Method 03/07/23 12:38 Room Air 03/07/23 10:51 Room Air 03/07/23 07:38 Room Air 03/07/23 07:28 03/07/23 03:00 Room Air 03/06/23 23:07 03/06/23 22:00 Room Air 03/06/23 19:00 Room Air 03/06/23 16:16 03/06/23 15:35 Room Air Pain Intensity Left Chest: Pain Intensity: 0 Transfer of Care Handoff Completed per policy Notes Mental Status: alert / awake / arousable Patient Amnestic to Procedure: Yes Nausea / Vomiting: adequately controlled Pain: adequately controlled Airway Patency, RR, SpO2: stable & adequate BP & HR: stable & adequate Hydration State: stable & adequate Anesthetic Complications: no major complications apparent and Pt Satisfied with anesthetic care
[2023-03-07] MEDS: SERTRALINE HCL 50 MG TABLET PO SCH (15:20)
[2023-03-07] MEDS: ENOXAPARIN INJ 40 MG/0.4 ML SYR SQ SCH (15:21)
[2023-03-07] MEDS: FILGRASTIM 480 MCG/1.6 ML VIAL SC SCH (16:04)
[2023-03-07] MEDS ORDERED: LORATADINE 10 MG TAB PO ONE (19:00)
--- NOTE | 2023-03-07 23:02 | Electrocardiogram Report ---
Test Reason : Blood Pressure : / mmHG Vent. Rate : 098 BPM Atrial Rate : 098 BPM P-R Int : 142 ms QRS Dur : 076 ms QT Int : 344 ms P-R-T Axes : 077 061 078 degrees QTc Int : 440 ms Normal sinus rhythm Nonspecific T wave abnormality Abnormal ECG No previous ECGs available Confirmed by Jonnie Sanchez ([id number]) on 03/07/2023 11:02:12 PM Referred By: REFERRED SELF Confirmed By:Jonnie Sanchez
[2023-03-08] MEDS ORDERED: Nursing to Pharmacy Communication SCH (01:00)
[2023-03-08] MEDS: Cefepime 2,000 MG Extended Infusion IV SCH ×3 (05:41→21:07)
[2023-03-08 07:14] LABS: BUN Creatinine Ratio 14.1 (10-20); Creatinine Clr Calc Pharmacy 81.6 ml/min; Est GFR (African American) 112.7 ml/min; Est GFR (Non-African American) 97.2 ml/min; Magnesium 1.8 mg/dl (1.7-2.4); Potassium 4.2 mmol/L (3.5-5.1)
--- NOTE | 2023-03-08 07:31 | Hospitalist Progress Note ---
Date of Service March 08, 2023 Assessment & Plan (1) Neutropenic fever: (2) Malignant neoplasm of upper-outer quadrant of right breast in female, estrogen receptor positive: Plan Sepsis/neutropenic fever Immunocompromised patient hx recurrent right breast cancer status post surgery ongoing adjuvant chemotherapy Hx Mediport infection (Achromobacter and Pseudomonas) status post Ciprofloxacin course last month Subsequently Mediport removal and replacement with with chest tunneled CVC (at [facility] by IR) Abnormal LFTs, possibly from chemotherapy medications/natural supplements Hyperglycemia rule out DM - current A1c 5.4% Mrs. Whaley is a 52 yo F with breast cancer s/p R mastectomy currently under [facility] chemo treatment that presented to the ED with fever and chills that started at 1130 in the morning. Recent infection at insertion site of port catheter; wound culture done on 01/18 and on 01/20 wound culture positive for pseudomonas aeruginosa; treated with THREE antibiotics; Cipro, Bactrim and she can not recall the third. Port tip culture sent and negative on 02/12. Follows with Dr. Mckayla Dillon at [facility]; completed 2/8 rounds of chemo; next round scheduled for Thursday 03/08. Radiation scheduled after completion of chemo which is planned for June. Neutropenic 1.70; no pancytopenia. Transaminitis AST 54, ALT 61, alk phos 114; procalcitonin 4.90. Liver US negative. Chest x-ray negative for acute cardiopulmonary disease. Current tunneled cvc insertion directly next to recent insertion wound infection; trend labs including LFT's, blood cultures obtained and Daptomycin added to cefepime for broad spectrum coverage including MRSA coverage. Neutropenic fever: WBC 1.70 on admission Transaminitis AST 54, ALT 61, alk phos 114 No abdominal pain; obtained liver ultrasound- No acute findings in the right upper quadrant. UA and BioFire negative Blood and sputum cultures ordered Blood cultx - positive for GNB (Enterobacterales) - positive for Citrobacter - follow final results Recent infection at insertion site of port catheter; wound culture done on 01/18 and on 01/20 wound culture positive for pseudomonas aeruginosa; + (Achromobacter), treated with PO antibiotics;keflex then Cipro, Bactrim as outpt Port was removed on 02/12 and tip culture sent and negative. New tunneled cvc was placed at [facility] by IR (per pt) Cefepime started in ED; will continue and Daptomycin added on admission - will continue and and adjust based on culture results -> given GNB dapto stopped ID consulted - recommend CT chest abdomen pelvis with IV and oral contrast, tunneled line removal. Repeat blood cultx. Stop dapto. CT imaging obtained and w/o any source of infection/ abscess Surgery was consulted, and tunneled CVC line was removed on 03/07/2023 Surgery also discussed with oncology, and Neupogen was given by Dr. Jordan on 03/07 Now blood counts improved. Repeat blood cultx obtained and pending CBC w/ diff ordered Malignant neoplasm of right breast: Follows with Dr. Mckayla Dillon at [facility] where she receives her chemo; she has completed 2/8 rounds of chemo; next round scheduled for Thursday 03/08. Takes [facility] chemotherapy. Follows with Dr. Rene with [facility] surgical oncology recurrent ER+, [place] positive, H ER 2 negative recurrent right breast invasive ductal carcinoma status post right mastectomy with reconstruction 10/30/2022 with 2/2 positive nodes and ALND Radiation scheduled after completion of chemo which is planned for June 2023 Last PET scan 09/27 negative for metastasis. Disposition: PCP: Dr. Stiles CODE STATUS: Full code VTE prophylaxis: lovenox Admission and Anticipated Discharge Date Admission Date: March 05, 2023 Subjective Pt seen in follow up of neutropenic fever, GNB bacteremia Tunneled cvc removed yesterday by surgery Currently pt is sitting up in bed in NAD , overall says she is feeling better Pt reports no fever, chills, chest pain, shortness of breath, abd. pain. Surgery discussed w/ hem/onc and neupogen was given yesterday as well - blood counts improved today Review of Systems Review of Systems: All systems reviewed & are unremarkable except as noted in Subjective Physical Exam Physical Exam: General : WD/WN F in NAD HEENT: head normocephalic, mo ist mucus membrane s CV: S1/S2, (-) M /G/R, (-) edema Re sp: Lungs CTA in a ll strong. On RA G I: Abdomen S/NT/ND , Ax4 bowel sounds , (-) CVA tenderne ss Musculoskeletal : Moves extremitie s Neuro: alert and oriented, answers appropriately, PE RRL, no facial asy mmetry, speech flu ent, moves extremi ties Skin: (-) pao hes , (-) erythema . Psych: euthymic mood Results & Data Results & Data Vital Signs (Past 12 Hours) Vital Signs Temp Pulse Pulse Resp BP Pulse Ox O2 Del Method 03/08/23 07:17 83 03/08/23 04:20 36.8 C 84 18 98/60 L 98 Room Air 03/07/23 23:39 85 03/07/23 23:26 36.7 C 79 18 98/60 L 99 Room Air 03/07/23 20:07 36.7 C 89 18 107/68 97 Room Air Laboratory Results 03/08/23 03/08/23 03/07/23 Range/Units 05:39 05:39 13:22 WBC 5.76 (4.8-10.8) K/ul RBC 3.84 L (4.20-5.40) M/uL Hgb 11.3 L (12.0-16.0) g/dl Hct 33.0 L (37.0-47.0) % MCV 85.9 (80.0-100.0) fL MCH 29.4 (25.0-34.0) pg MCHC 34.2 (32.0-36.0) g/dL RDW Std Deviation 42.0 (36.4-46.3) fL RDW Coeff of Julian 13.7 (11.5-14.5) % Plt Count 142 (130-400) K/uL MPV 9.3 L (9.4-12.4) fL Immature Gran % (Auto) 5.6 % Neut % (Auto) 57.7 % Lymph % (Auto) 19.6 % [place] % (Auto) 14.2 % Eos % (Auto) 2.6 % Baso % (Auto) 0.3 % Neut # (Auto) 3.32 (1.40-6.50) K/uL Lymph # (Auto) 1.13 L (1.2-3.4) K/uL [place] # (Auto) 0.82 H (0.11-0.59) K/uL Eos # (Auto) 0.15 (0-0.50) K/uL Baso # (Auto) 0.02 (0-0.2) K/uL Immature Gran # (Auto) 0.32 H (0.01-0.20) K/uL Toxic Vacuolation 1+ Polychromasia 1+ Sodium 140 (136-145) mmol/L Potassium 4.2 (3.5-5.1) mmol/L Chloride 112 H (98-107) mmol/L Carbon Dioxide 23 (21-32) mmol/L Anion Gap 5 (3-11) BUN 10 (6-23) mg/dl Creatinine 0.71 (0.6-1.2) mg/dl Est Cr Clr Drug Dosing 81.6 ml/min Est GFR ( Amer) 112.7 ml/min Est GFR (Non-Af Amer) 97.2 ml/min BUN/Creatinine Ratio 14.1 (10-20) Glucose 90 (70-99(Fasting)) mg/dl Calcium 9.0 (8.6-10.3) mg/dl Phosphorus 3.0 (2.5-4.9) mg/dl Magnesium 1.8 (1.7-2.4) mg/dl POC Ur Test NEG (NEG) Medications Administered Current Inpatient Medications Acetaminophen (Acetaminophen 500 Mg Tab) 500 mg PO Q6H PRN PRN Reason: Pain/Fever Stop: 04/04/23 22:14 Last Admin: 03/06/23 03:00 Dose: 500 mg Enoxaparin Sodium (Enoxaparin Inj 40 Mg/0.4 Ml Syr) 40 mg SQ QAM [facility] Stop: 04/05/23 08:59 Last Admin: 03/07/23 15:21 Dose: Not Given Filgrastim (Filgrastim 480 Mcg/1.6 Ml Vial) 480 mcg SC DAILY [facility] Stop: 03/08/23 09:01 Last Admin: 03/07/23 16:04 Dose: 480 mcg Promethazine HCl 12.5 mg/ (Sodium Chloride) 50.5 mls @ 202 mls/hr IV Q6H PRN PRN Reason: Nausea And Vomiting Stop: 04/04/23 22:14 Last Infusion: 03/06/23 03:21 Dose: Infused Cefepime HCl 2,000 mg/ (Dextrose) 120 mls @ 40 mls/hr IV Q8H [facility]; Protocol Stop: 03/20/23 05:59 Last Admin: 03/08/23 05:41 Dose: 40 mls/hr Sodium Chloride (Nss 1000ml) 1,000 mls @ 125 mls/hr IV .Q8H [facility] Stop: 04/06/23 09:29 Last Admin: 03/07/23 23:43 Dose: 125 mls/hr Ibuprofen (Ibuprofen 200 Mg Tab) 200 mg PO Q6H PRN PRN Reason: Mild Pain (Scale 1, 2, 3) Stop: 04/04/23 22:14 Last Admin: 03/06/23 06:40 Dose: 200 mg Ketorolac Tromethamine (Ketorolac Tromethamine 15 Mg/Ml Vial) 15 mg IV Q6H PRN PRN Reason: Pain Stop: 03/10/23 22:14 Lorazepam (Lorazepam 0.5 Mg Tab) 0.5 mg PO TID PRN PRN Reason: Anxiety Stop: 04/04/23 22:14 Sertraline HCl (Sertraline Hcl 50 Mg Tablet) 50 mg PO QAM [facility] Stop: 04/05/23 08:59 Last Admin: 03/07/23 15:20 Dose: 50 mg
[2023-03-08] MEDS: ENOXAPARIN INJ 40 MG/0.4 ML SYR SQ SCH (07:42)
[2023-03-08 07:43] LABS: Basophils # (auto) 0.02 K/uL (0-0.2); Basophils % (auto) 0.3 %; Eosinophils # (auto) 0.15 K/uL (0-0.50); Eosinophils % (auto) 2.6 %; Hemoglobin 11.3 g/dl (12.0-16.0); Immature Granulocytes # (auto) 0.32 K/uL (0.01-0.20); Immature Granulocytes % (auto) 5.6 %; Lymphocytes # (auto) 1.13 K/uL (1.2-3.4); Lymphocytes % (auto) 19.6 %; Mean Corpuscular Hemoglobin 29.4 pg (25.0-34.0); Mean Corpuscular Hgb Conc 34.2 g/dL (32.0-36.0); Mean Corpuscular Volume 85.9 fL (80.0-100.0); Mean Platelet Volume 9.3 fL (9.4-12.4); Monocytes # (auto) 0.82 K/uL (0.11-0.59); Monocytes % (auto) 14.2 %; Neutrophils # (auto) 3.32 K/uL (1.40-6.50); Neutrophils % (auto) 57.7 %; Platelet Count 142 K/uL (130-400); Polychromasia 1+; RDW Coefficient of Variation 13.7 % (11.5-14.5); Red Blood Count 3.84 M/uL (4.20-5.40); Toxic Vacuolation 1+; White Blood Count 5.76 K/ul (4.8-10.8)
[2023-03-08] MEDS: SERTRALINE HCL 50 MG TABLET PO SCH (07:43)
--- NOTE | 2023-03-08 08:30 | Surgery Progress Note ---
Date of Service March 08, 2023 Assessment & Plan (1) Neutropenic fever: Plan: Clinically doing well. White blood cell count now up to 5. Left chest/neck incisions look good. I will sign off. I will be happy to assist in the future for any additional needs. Admission and Anticipated Discharge Date Admission Date: March 05, 2023 Subjective Patient seen. Feeling fine. Physical Exam Physical Exam: Alert. No acute distress The 2 incisions in her left upper chest/neck are healing nicely with no bleeding or drainage. There is no erythema or sign of infection Results & Data Vital Signs (Past 12 Hours) Vital Signs Temp Pulse Pulse Resp BP Pulse Ox O2 Del Method 03/08/23 07:17 83 03/08/23 04:20 36.8 C 84 18 98/60 L 98 Room Air 03/07/23 23:39 85 03/07/23 23:26 36.7 C 79 18 98/60 L 99 Room Air PG Care Time/CCT Total # of Minutes Spent Total Time Spent with Patient: Total time spent is greater than 50% in coordination of care (as documented) at patient's floor/unit and/or counseling patient: Coding Level of Care Code 24540 Post Operative Follow-Up Diagnoses Neutropenic fever D70.9; R50.81
[2023-03-08] MEDS: FILGRASTIM 480 MCG/1.6 ML VIAL SC SCH (09:13)
[2023-03-08] MEDS: LORATADINE 10 MG TAB PO SCH (09:14)
[2023-03-08] MEDS: SODIUM CHLORIDE 0.9% 1000ML 1,000 ML IV SCH ×2 (09:42→17:00)
[2023-03-09] MEDS: Cefepime 2,000 MG Extended Infusion IV SCH (05:29)
[2023-03-09] MEDS: ACETAMINOPHEN 500 MG TAB PO PRN (05:37)
[2023-03-09 07:36] LABS: Basophils # (auto) 0.04 K/uL (0-0.2); Basophils % (auto) 0.3 %; Eosinophils # (auto) 0.24 K/uL (0-0.50); Eosinophils % (auto) 1.9 %; Hematocrit (blood only) 32.7 % (37.0-47.0); Hemoglobin 11.4 g/dl (12.0-16.0); Immature Granulocytes # (auto) 0.72 K/uL (0.01-0.20); Immature Granulocytes % (auto) 5.6 %; Lymphocytes # (auto) 1.78 K/uL (1.2-3.4); Lymphocytes % (auto) 13.8 %; Mean Corpuscular Hemoglobin 29.8 pg (25.0-34.0); Mean Corpuscular Hgb Conc 34.9 g/dL (32.0-36.0); Mean Corpuscular Volume 85.4 fL (80.0-100.0); Mean Platelet Volume 9.5 fL (9.4-12.4); Monocytes # (auto) 1.61 K/uL (0.11-0.59); Monocytes % (auto) 12.5 %; Neutrophils # (auto) 8.53 K/uL (1.40-6.50); Neutrophils % (auto) 65.9 %; Nucleated RBC # (auto) 0.02 K/uL (0-0.12); Nucleated RBC % (auto) 0.2 %; Platelet Count 161 K/uL (130-400); RBC Morphology Unremarkable; RDW Coefficient of Variation 13.8 % (11.5-14.5); RDW Standard Deviation 42.8 fL (36.4-46.3); Red Blood Count 3.83 M/uL (4.20-5.40); White Blood Count 12.92 K/ul (4.8-10.8)
[2023-03-09 07:44] LABS: BUN Creatinine Ratio 13.2 (10-20); Calcium 9.4 mg/dl (8.6-10.3); Creatinine Clr Calc Pharmacy 74.9 ml/min; Est GFR (African American) 103.8 ml/min; Est GFR (Non-African American) 89.6 ml/min; Magnesium 1.9 mg/dl (1.7-2.4)
[2023-03-09] MEDS: SERTRALINE HCL 50 MG TABLET PO SCH (08:43)
[2023-03-09] MEDS: LORATADINE 10 MG TAB PO SCH (08:44)
[2023-03-09] MEDS: ENOXAPARIN INJ 40 MG/0.4 ML SYR SQ SCH (08:45)
--- NOTE | 2023-03-09 13:16 | Hospitalist Progress Note ---
Date of Service March 09, 2023 Assessment & Plan (1) Neutropenic fever: (2) Malignant neoplasm of upper-outer quadrant of right breast in female, estrogen receptor positive: Plan Sepsis/neutropenic fever Immunocompromised patient hx recurrent right breast cancer status post surgery ongoing adjuvant chemotherapy Hx Mediport infection (Achromobacter and Pseudomonas) status post Ciprofloxacin course last month Subsequently Mediport removal and replacement with with chest tunneled CVC (at [facility] by IR) Abnormal LFTs, possibly from chemotherapy medications/natural supplements Hyperglycemia rule out DM - current A1c 5.4% Mrs. Whaley is a 52 yo F with breast cancer s/p R mastectomy currently under [facility] chemo treatment that presented to the ED with fever and chills that started at 1130 in the morning. Recent infection at insertion site of port catheter; wound culture done on 01/18 and on 01/20 wound culture positive for pseudomonas aeruginosa; treated with THREE antibiotics; Cipro, Bactrim and she can not recall the third. Port tip culture sent and negative on 02/12. Follows with Dr. Mckayla Dillon at [facility]; completed 2/8 rounds of chemo; next round scheduled for Thursday 03/08. Radiation scheduled after completion of chemo which is planned for June. Neutropenic 1.70; no pancytopenia. Transaminitis AST 54, ALT 61, alk phos 114; procalcitonin 4.90. Liver US negative. Chest x-ray negative for acute cardiopulmonary disease. Current tunneled cvc insertion directly next to recent insertion wound infection; trend labs including LFT's, blood cultures obtained and Daptomycin added to cefepime for broad spectrum coverage including MRSA coverage. Neutropenic fever: WBC 1.70 on admission Transaminitis AST 54, ALT 61, alk phos 114 No abdominal pain; obtained liver ultrasound- No acute findings in the right upper quadrant. UA and BioFire negative Blood and sputum cultures ordered Blood cultx - positive for GNB (Enterobacterales) - positive for Citrobacter koseri - sensitive to ciprofloxacin - discussed w/ ID - recommend 1 week of ciprofloxacin Recent infection at insertion site of port catheter; wound culture done on 01/18 and on 01/20 wound culture positive for pseudomonas aeruginosa; + (Achromobacter), treated with PO antibiotics;keflex then Cipro, Bactrim as outpt Port was removed on 7/11 and tip culture sent and negative. New tunneled cvc was placed at [facility] by IR (per pt) Cefepime started in ED; will continue and Daptomycin added on admission - will continue and and adjust based on culture results -> given GNB dapto stopped ID consulted - recommend CT chest abdomen pelvis with IV and oral contrast, tunneled line removal. Repeat blood cultx. Stop dapto. CT imaging obtained and w/o any source of infection/ abscess Surgery was consulted, and tunneled CVC line was removed on 03/07/2023 Surgery also discussed with oncology, and Neupogen was given by Dr. Jordan on 03/07 Now blood counts improved. Blood cultx - positive for GNB (Enterobacterales) - positive for Citrobacter koseri - sensitive to ciprofloxacin - discussed w/ ID - recommend 1 week of ciprofloxacin Repeat blood cultx obtained and so far negative for 48 hrs - follow up final results Malignant neoplasm of right breast: Follows with Dr. Mckayla Dillon at [facility] where she receives her chemo; she has completed 2/ rounds of chemo; next round scheduled for Thursday 03/08. Takes CM[facility] chemotherapy. Follows with Dr. Rene with [facility] surgical oncology recurrent ER+, [place] positive, H ER 2 negative recurrent right breast invasive ductal carcinoma status post right mastectomy with reconstruction 10/30/2022 with 2/2 positive nodes and ALND Radiation scheduled after completion of chemo which is planned for June 2023 Last PET scan 09/27 negative for metastasis. Disposition: PCP: Dr. Stiles CODE STATUS: Full code VTE prophylaxis: lovenox Admission and Anticipated Discharge Date Admission Date: March 05, 2023 Subjective Pt seen in follow up of neutropenic fever, GNB bacteremia Tunneled cvc removed by surgery Currently pt is sitting up in bed in NAD , overall says she is feeling well Pt reports no fever, chills, chest pain, shortness of breath, abd. pain. Surgery discussed w/ hem/onc and neupogen was given as well - blood counts improved now Review of Systems Review of Systems: All systems reviewed & are unremarkable except as noted in Subjective Physical Exam Physical Exam: General : WD/WN F in NAD HEENT: head normocephalic, mo ist mucus membrane s CV: S1/S2, (-) M /G/R, (-) edema Re sp: Lungs CTA in a ll strong. On RA G I: Abdomen S/NT/ND , Ax4 bowel sounds , (-) CVA tenderne ss Musculoskeletal : Moves extremitie s Neuro: alert and oriented, answers appropriately, PE RRL, no facial asy mmetry, speech flu ent, moves extremi ties Skin: (-) pao hes , (-) erythema . Psych: euthymic mood Results & Data Results & Data Vital Signs (Past 12 Hours) Vital Signs Temp Pulse Pulse Resp BP Pulse Ox O2 Del Method 03/09/23 11:40 36.6 C 74 16 100/67 97 Room Air 03/09/23 06:00 77 03/09/23 07:11 36.7 C 73 16 105/66 98 Room Air 03/09/23 03:40 36.9 C 83 16 114/69 98 Room Air Laboratory Results 03/09/23 03/09/23 Range/Units 05:50 05:50 WBC 12.92 H (4.8-10.8) K/ul RBC 3.83 L (4.20-5.40) M/uL Hgb 11.4 L (12.0-16.0) g/dl Hct 32.7 L (37.0-47.0) % MCV 85.4 (80.0-100.0) fL MCH 29.8 (25.0-34.0) pg MCHC 34.9 (32.0-36.0) g/dL RDW Std Deviation 42.8 (36.4-46.3) fL RDW Coeff of Julian 13.8 (11.5-14.5) % Plt Count 161 (130-400) K/uL MPV 9.5 (9.4-12.4) fL Immature Gran % (Auto) 5.6 % Neut % (Auto) 65.9 % Lymph % (Auto) 13.8 % [place] % (Auto) 12.5 % Eos % (Auto) 1.9 % Baso % (Auto) 0.3 % Neut # (Auto) 8.53 H (1.40-6.50) K/uL Lymph # (Auto) 1.78 (1.2-3.4) K/uL [place] # (Auto) 1.61 H (0.11-0.59) K/uL Eos # (Auto) 0.24 (0-0.50) K/uL Baso # (Auto) 0.04 (0-0.2) K/uL Immature Gran # (Auto) 0.72 H (0.01-0.20) K/uL Absolute Nucleated RBC 0.02 (0-0.12) K/uL Nucleated RBC % (auto) 0.2 % RBC Morphology Unremarkable Sodium 139 (136-145) mmol/L Potassium 4.0 (3.5-5.1) mmol/L Chloride 109 H (98-107) mmol/L Carbon Dioxide 24 (21-32) mmol/L Anion Gap 6 (3-11) BUN 10 (6-23) mg/dl Creatinine 0.76 (0.6-1.2) mg/dl Est Cr Clr Drug Dosing 74.9 ml/min Est GFR ( Amer) 103.8 ml/min Est GFR (Non-Af Amer) 89.6 ml/min BUN/Creatinine Ratio 13.2 (10-20) Glucose 96 (70-99(Fasting)) mg/dl Calcium 9.4 (8.6-10.3) mg/dl Phosphorus 4.0 D (2.5-4.9) mg/dl Magnesium 1.9 (1.7-2.4) mg/dl Medications Administered Current Inpatient Medications Acetaminophen (Acetaminophen 500 Mg Tab) 500 mg PO Q6H PRN PRN Reason: Pain/Fever Stop: 04/04/23 22:14 Last Admin: 03/09/23 05:37 Dose: 500 mg Enoxaparin Sodium (Enoxaparin Inj 40 Mg/0.4 Ml Syr) 40 mg SQ QAM [facility] Stop: 04/05/23 08:59 Last Admin: 03/09/23 08:45 Dose: Not Given Promethazine HCl 12.5 mg/ (Sodium Chloride) 50.5 mls @ 202 mls/hr IV Q6H PRN PRN Reason: Nausea And Vomiting Stop: 04/04/23 22:14 Last Infusion: 03/06/23 03:21 Dose: Infused Cefepime HCl 2,000 mg/ (Dextrose) 120 mls @ 40 mls/hr IV Q8H [facility]; Protocol Stop: 03/20/23 05:59 Last Infusion: 03/09/23 08:56 Dose: Infused Sodium Chloride (Nss 1000ml) 1,000 mls @ 125 mls/hr IV .Q8H [facility] Stop: 04/06/23 09:29 Last Infusion: 03/08/23 18:58 Dose: 0 mls/hr Ibuprofen (Ibuprofen 200 Mg Tab) 200 mg PO Q6H PRN PRN Reason: Mild Pain (Scale 1, 2, 3) Stop: 04/04/23 22:14 Last Admin: 03/06/23 06:40 Dose: 200 mg Ketorolac Tromethamine (Ketorolac Tromethamine 15 Mg/Ml Vial) 15 mg IV Q6H PRN PRN Reason: Pain Stop: 03/10/23 22:14 Loratadine (Loratadine 10 Mg Tab) [facility] [place]: 05/07/23 08:59 Last Admin: 03/09/23 08:44 Dose: Not Given Lorazepam (Lorazepam 0.5 Mg Tab) 0.5 mg PO TID PRN PRN Reason: Anxiety Stop: 04/04/23 22:14 Sertraline HCl (Sertraline Hcl 50 Mg Tablet) 50 mg PO [facility] Stop: 04/05/23 08:59 Last Admin: 03/09/23 08:43 Dose: 50 mg
--- NOTE | 2023-03-09 13:21 | Discharge Summary ---
Date of Service March 09, 2023 Admission HPI Per Admitting Provider Ms. Whaley is a 52-year-old female that presented to the ED today with fever and chills that started at 1130 this morning. She was working out by weight lifting and started to have feverish symptoms with chills. She had her tunneled catheter dressing changed this morning as well. Afterwards, she went to work and got off of the phone after a stressful call and she started to have fever and chills. First temp 101, second temp 102. She called her oncologist at [facility] who advised her to go to the ED. Advised she has a slight nonproductive cough. Recently babysat her 5 year old great niece who was diagnosed with HFMD today. Recent infection at insertion site of port catheter; wound culture done on 01/18 and on 01/20 wound culture positive for pseudomonas aeruginosa; treated with THREE antibiotics; Cipro, Bactrim and she can not recall the third. Port was removed on 02/12 and tip culture sent and negative. Is diligent with weekly dressing changes and saline flushing of her current power port. Follows with Dr. Mckayla Dillon at [facility] where she receives her chemo; she has completed 2/8 rounds of chemo; next round scheduled for Thursday 03/08. Takes [facility] chemotherapy. [facility] oncology and Dr. Leggett with radiation oncology for recurrent ER+, ID positive, H ER 2 negative recurrent right breast invasive ductal carcinoma status post right mastectomy with reconstruction 10/30/2022 with 2/2 positive nodes and ALND. Pathology results 11/25/2022 negative for malignancy. Neutropenic 1.70; no pancytopenia. Transaminitis AST 54, ALT 61, alk phos 114; procalcitonin 4.90. Liver US negative. Chest x-ray negative for acute cardiopulmonary disease. Denies dizziness, shortness of breath, chest pain, palpitations, abdominal pain, nausea, vomiting, diarrhea, hematochezia, dysuria, polyuria, hematuria, no oral ulcers, pruritis, recent falls or trauma. Pt AAO4 and a good historian. Meets sepsis criteria with tachycardia, neutropenia, and fevers. Current power port insertion directly next to recent insertion wound infection; suggest trending labs including LFT's, await blood cultures and cover with Daptomycin for broad spectrum coverage including MRSA coverage. Would consider antipseudomonal coverage, especially given recent infection. IV fluids for resuscitation. Consider power port removal with tip culture if no improvement. Patient will be admitted for further evaluation and management. Please see A/P for further details. Admission Exam Per Admitting Provider Neuro: AAOx4, PERRLA, no aphagia, memory changes, CNII-XII grossly intact HEENT: head normocephalic, moist mucus membranes CV: S1/S2, (-) M/G/R, (-) edema, cap refill < 3 seconds Resp: Lungs CTA in all strong. On RA GI: Abdomen S/NT/ND, Ax4 bowel sounds, (-) CVA tenderness Musculoskeletal: 5/5 B/L UE strength, 5/5 B/L LE strength. No gait disturbance Skin: (-) rashes , (-) erythema. Psych: euthymic mood Principal Diagnosis sepsis / Neutropenic fever Bacteremia Immunocompromised patient Discharge Exam General : WD/WN F in NAD HEENT: head normocephalic, moist mucus membranes CV: S1/S2, (-) M/G/R, (-) edema Resp: Lungs CTA in all strong. On RA GI: Abdomen S/NT/ND, Ax4 bowel sounds, (-) CVA tenderness Musculoskeletal: Moves extremities Neuro: alert and oriented, answers appropriately, PERRL, no facial asymmetry, speech fluent, moves extremities Skin: (-) rashes , (-) erythema. Psych: euthymic mood Discharge Data Allergies Allergy/AdvReac Type Severity Reaction Status Date / Time adhesive AdvReac Mild Rash Verified 03/05/23 16:55 Consultations 03/05/23 19:45 ED Decision to Admit Stat 03/06/23 07:39 Consult Infectious Diseases Routine 03/06/23 18:12 Consult General Surgery Routine Procedures Performed Operation Date: 03/07/23 08:25 Actual Procedures p Removal of Access Port(Left) - Jose Rosas DO Ordered Studies 03/05/23 18:47 US RUQ [US liver] Stat FINDINGS: Liver: Unremarkable. No mass. No intrahepatic bile duct dilation. Gallbladder: No gallstones or sludge. No gallbladder wall thickening or pericholecystic fluid. Negative sonographic Dorman's sign. Common bile duct: Unremarkable as visualized. No stones. No dilation. Normal common bile duct measuring 5.1 mm. Pancreas: Visualized portions of the pancreas are grossly unremarkable. Right kidney: Right kidney measures 9.5 cm in length. No hydronephrosis or stone. Inferior vena cava: Visualized portions of the IVC are grossly unremarkable. Free fluid: No ascites. IMPRESSION: No acute findings in the right upper quadrant. 03/06/23 17:59 CT chest with contrast [CT chest diagnostic w con] Routine FINDINGS: Lungs: Calcified granuloma in the RIGHT lower lobe. Pleural space: Unremarkable. No pneumothorax. No significant effusion. Heart: Unremarkable. No cardiomegaly. No significant pericardial effusion. No significant coronary artery calcifications. Thyroid: RIGHT thyroid nodule measures 9 mm. Bones/joints: Unremarkable. No acute fracture. No dislocation. 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 Vasculature: Central venous catheter terminates in the SVC. No thoracic aortic aneurysm. Lymph nodes: Unremarkable. No enlarged lymph nodes. IMPRESSION: No pneumonia. 03/06/23 18:06 CT abd pelvis oral and IV con Routine FINDINGS: Lung bases: Unremarkable. No mass. No consolidation. ABDOMEN: Liver: Unremarkable. No mass. Gallbladder and bile ducts: Unremarkable. No calcified stones. No ductal dilation. Pancreas: Unremarkable. No mass. No ductal dilation. Spleen: Unremarkable. No splenomegaly. Adrenals: Unremarkable. No mass. Kidneys and ureters: Unremarkable. No hydronephrosis or delayed nephrogram. Stomach and bowel: Mild fecal retention, correlate for constipation. No small bowel obstruction. No free air. No mucosal thickening. PELVIS: Appendix: No findings to suggest acute appendicitis. Bladder: Unremarkable. No mass. Reproductive: Unremarkable as visualized. ABDOMEN and PELVIS: Intraperitoneal space: See above. Bones/joints: No acute fracture. No dislocation. Soft tissues: Unremarkable. Vasculature: Unremarkable. No abdominal aortic aneurysm. Lymph nodes: Unremarkable. No enlarged lymph nodes. IMPRESSION: 1. No hydronephrosis or delayed nephrogram. 2. Mild fecal retention, correlate for constipation. No small bowel obstruction. No free air. Hospital Course (1) Neutropenic fever: (2) Malignant neoplasm of upper-outer quadrant of right breast in female, estrogen receptor positive: Plan Sepsis/neutropenic fever Immunocompromised patient hx recurrent right breast cancer status post surgery ongoing adjuvant chemotherapy Hx Mediport infection (Achromobacter and Pseudomonas) status post Ciprofloxacin course last month Subsequently Mediport removal and replacement with with chest tunneled CVC (at [facility] by IR) Abnormal LFTs, possibly from chemotherapy medications/natural supplements Hyperglycemia rule out DM - current A1c 5.4% Mrs. Whaley is a 52 yo F with breast cancer s/p R mastectomy currently under [facility] chemo treatment that presented to the ED with fever and chills that started at 1130 in the morning. Recent infection at insertion site of port catheter; wound culture done on 01/18 and on 01/20 wound culture positive for pseudomonas aeruginosa; treated with THREE antibiotics; Cipro, Bactrim and she can not recall the third. Port tip culture sent and negative on 02/12. Follows with Dr. Mckayla Dillon at [facility]; completed 2/8 rounds of chemo; next round scheduled for Thursday 03/08. Radiation scheduled after completion of chemo which is planned for June. Neutropenic 1.70; no pancytopenia. Transaminitis AST 54, ALT 61, alk phos 114; procalcitonin 4.90. Liver US negative. Chest x-ray negative for acute cardiopulmonary disease. Current tunneled cvc insertion directly next to recent insertion wound infection; trend labs including LFT's, blood cultures obtained and Daptomycin added to cefepime for broad spectrum coverage including MRSA coverage. Neutropenic fever: WBC 1.70 on admission Transaminitis AST 54, ALT 61, alk phos 114 No abdominal pain; obtained liver ultrasound- No acute findings in the right upper quadrant. UA and BioFire negative Blood and sputum cultures ordered Blood cultx - positive for GNB (Enterobacterales) - positive for Citrobacter koseri - sensitive to ciprofloxacin - discussed w/ ID - recommend 1 week of ciprofloxacin Recent infection at insertion site of port catheter; wound culture done on 01/18 and on 01/20 wound culture positive for pseudomonas aeruginosa; + (Achromobacter), treated with PO antibiotics;keflex then Cipro, Bactrim as outpt Port was removed on 02/12 and tip culture sent and negative. New tunneled cvc was placed at [facility] by IR (per pt) Cefepime started in ED; will continue and Daptomycin added on admission - will continue and and adjust based on culture results -> given GNB dapto stopped ID consulted - recommend CT chest abdomen pelvis with IV and oral contrast, tunneled line removal. Repeat blood cultx. Stop dapto. CT imaging obtained and w/o any source of infection/ abscess Surgery was consulted, and tunneled CVC line was removed on 03/07/2023 Surgery also discussed with oncology, and Neupogen was given by Dr. Jordan on 03/07 Now blood counts improved. Blood cultx - positive for GNB (Enterobacterales) - positive for Citrobacter koseri - sensitive to ciprofloxacin - discussed w/ ID - recommend 1 week of ciprofloxacin Repeat blood cultx obtained and so far negative for 48 hrs - follow up final results Malignant neoplasm of right breast: Follows with Dr. Mckayla Dillon at [facility] where she receives her chemo; she has completed 2/ rounds of chemo; next round scheduled for Thursday 03/08. Takes CMF chemotherapy. Follows with Dr. Rene with [facility] surgical oncology recurrent ER+, ID positive, H ER 2 negative recurrent right breast invasive ductal carcinoma status post right mastectomy with reconstruction 10/30/2022 with 2/2 positive nodes and ALND Radiation scheduled after completion of chemo which is planned for June 2023 Last PET scan 09/27 negative for metastasis. Total Time Total Time Spent Total Time Spent (In Minutes): 40 Discharge Plan Discharge Items Patient Disposition: Home - Self-Care Reason For Visit: SEPSIS Discharge Diagnosis: sepsis / Neutropenic fever Bacteremia Immunocompromised patient Activity: Per Instructions section Non-emergency contact: Primary Care Provider and Oncologist Call non-emergency contact if: you have any medication questions and your symptoms worsen Follow-up/Referrals: Jose Rosas DO [Surgeon] - Clary Mari PA-C [Primary Care Provider] - Diet: Regular Addtl Attending Provider Instructions: Follow up with your primary care physician and your oncologist. You should be seen by your primary care doctor within 1 week. Finish antibiotic treatment with ciprofloxacin as prescribed. Pending Studies at Discharge: Yes Studies:: final blood culture Stand-Alone Forms: My [employer], Smoking Cessation Medications and DC Order Prescriptions: New ciprofloxacin HCl 500 mg tablet 500 mg PO BID 7 Days Qty: 14 0RF Continued vitamin K2 100 mcg capsule 100 mcg PO DAILY vitamin C Lipsomal 1,600 mg PO DAILY Coriolus Versicolor SAP mushrooms 500 mg PO DAILY sertraline 50 mg tablet 50 mg PO QAM TetrahydroCurcumin SR 2 cap PO QAM Ultraflora Spectrum Probiotic 1 cap PO QAM Reacted Calcium with Phosphorous 250 mg PO DAILY MagPure Glycinate 270 mg PO DAILY acetaminophen [Tylenol Extra Strength] 500 mg tablet 1,000 mg PO Q8H PRN (Reason: Pain) ibuprofen 400 mg tablet 400 mg PO Q8H krill oil [id number] mg Capsule 1 cap PO QAM cholecalciferol (vitamin D3) [Vitamin D3] 50 mcg (2,000 unit) tablet 4,000 unit PO QAM Discharge Orders: Discharge Order (Routine); Ordered 03/09/23 Ordered By: Tony Le Admission Data Admit Date/Time: 03/05/23 21:53 Attending Provider: Tony Le Admit Provider: Vince Morin Primary Care Provider: Clary Mari Other Providers: Vince Morin ; Miller Villar ; Brandon Morales ; Cruz Bloom I. ; Og Juan II ; Chitra Edmond ; Neri Rodriguez ; Marc Leal ; Mitchell Bess ; Jose Rosas
== END 2023-03-09 15:04 | disposition home or self-care (01) | DRG 314 ==
LOC: ED 14:33 → EDINP 21:53 → 2W 22:14